=== PATIENT | male | born 1960 | race Caucasian/White ===

== ENCOUNTER 2020-05-13 19:34 | Inpatient (IN) | payer MEDICARE, SELFPAY ==
[2020-05-13 19:48] VITALS: BP 195/94; PULSE 75; RESP 20; TEMP 38; O2SAT 98
--- NOTE | 2020-05-13 20:00 | ED_ITS ---
HPI - Extremity Problem General Chief complaint: Extremity Problem,Nontraumatic Stated complaint: diabetic, toe is bad Time Seen by Provider: 05/13/20 19:45 Source: patient Mode of arrival: Ambulatory Limitations: no limitations History of Present Illness HPI Narrative: 59-year-old male. His lung dependent diabetic. Here for evaluation of infection of his left great toe/foot. Patient states that he believes all of the symptoms started on Tuesday of this week. He denies any pain. States that he went to an outside facility 2 days ago. He was not started on any antibiotics. He came to the emergency department today because the toenail of that great toe came off today and he was convinced to come in for evaluation by his sister who is at bedside. He states that he is taking all of his medications. No fevers. No chest pain. No shortness of breath. Related Data Home Medications Medication Instructions Recorded Confirmed gabapentin 300 mg PO DAILY 05/13/20 05/13/20 insulin glargine [Basaglar KwikPen 35 unit SUBCUT BEDTIME 05/13/20 05/13/20 U-100 Insulin] metformin 500 mg PO BID 05/13/20 05/13/20 Allergies Allergy/AdvReac Type Severity Reaction Status Date / Time Penicillins Allergy Unknown Verified 05/13/20 20:00 Review of Systems Constitutional Constitutional: Denies fatigue and Denies fever(s) Cardiovascular Cardiovascular: Denies chest pain, Denies rapid heart rate and Denies dyspnea Respiratory Respiratory: Denies cough and Denies dyspnea Gastrointestinal Gastrointestinal: Denies abdominal pain, Denies nausea and Denies vomiting Genitourinary Genitourinary: Denies dysuria Genitourinary: Denies dysuria Musculoskeletal Musculoskeletal: Denies arthralgias and Denies myalgias Comments: Redness swelling his left foot/great toe Integumentary/Breasts Comments: Redness and swelling to left foot Neurologic Comments: Decreased sensation left foot but this is not new Endocrine Endocrine: Denies fatigue Hematologic/Lymphatic Hematologic/Lymphatic: Denies easy bleeding and Denies easy bruising Allergic/Immunologic Allergic/Immunologic: Denies urticaria Patient History Medical History Cognitive developmental delay (Chronic) Diabetes type 2, uncontrolled (Acute) Edentulous (Acute) Hard of hearing (Chronic) Tobacco user (Chronic) Surgical History Hx of cholecystectomy (Acute) Family History Sister Diabetes type 1, controlled Brother Diabetes mellitus Father Acute [place] Atrial fibrillation, chronic Status cardiac pacemaker Mother Lung cancer Social History marital status: unmarried,single number of children: 1 household members: children lives independently: Yes caregiver/support person: No housing: house occupational status: employed current occupational exposures/hazards: Yes ([employer]) Smoking Status: Current every day smoker quit status: not considering quitting alcohol intake: former substance use type: marijuana Smoking Status: Current every day smoker Substance Use Type: marijuana Exam Initial Vital Signs Initial Vital Signs: Vital Signs Temperature 100.4 F H 05/13/20 19:48 Pulse Rate 75 05/13/20 19:48 Respiratory Rate 20 05/13/20 19:48 Blood Pressure 195/94 H 05/13/20 19:48 Pulse Oximetry 98 05/13/20 19:48 Const General: cooperative Limitations: mental status not altered HENMT Head: normal to inspection and normocephalic Resp Effort & Inspection: tachypneic Auscultation: clear to auscultation bilaterally Cardio Rate: regular rate Pulses: dorsalis pedis present bilaterally GI Inspection: non-distended Palpation: soft Skin Other: Patient is missing the toenail of his left great toe. Has ulcerations and draining and purulence from the left great toenail bed extending up to the IP joint. Has redness circumferential of the great toe and the 2nd toe up until mid foot with swelling. There is also redness streaking up the medial aspect of his foot in the medial aspect of his leg to distal to the knee. Neuro Other: Does have decreased sensation to light touch of his left foot but seems to be equal bilaterally and patient reports this is not new. Extrem General: capillary refill normal Other: Full range of motion left ankle Scores GCS Luciana coma scale eye opening: Spontaneous [place] coma scale verbal response: Orientated [place] coma scale motor response: Obey commands [place] coma scale total score: 15 Course Orders Ordered: ED Orders 05/13/20 19:50 Blood Culture Stat 05/13/20 19:55 C-Reactive Protein Quant Stat Complete Blood Count AUTO DIFF Stat Comprehensive Metabolic Panel Stat Erythrocyte Sedimentation Rate Stat Hemoglobin A1C% w Est Avg Glu Stat Lactate (Lactic Acid) Stat Lipase Stat Procalcitonin Stat Wound Culture and Gram Stain Stat 05/13/20 20:00 XR foot LT min 3V Stat 05/13/20 20:54 Consult to Orthopedic Surgery Stat Acetaminophen (Tylenol) 650 mg PO Q6HR PRN PRN Reason: Fever/Mild Pain (1-3) Last Admin: 05/13/20 22:30 Dose: 650 mg Documented by: SILVIA Dextrose ([email or web address]) 25 gm IV PRN PRN PRN Reason: Hypoglycemia Docusate Sodium (Colace) 100 mg PO BID [facility] Last Admin: 05/13/20 22:48 Dose: 100 mg Documented by: SILVIA Sodium Chloride (Normal Saline 0.9%) 1,000 mls @ 125 mls/hr IV CONT [facility] Last Infusion: 05/13/20 21:41 Dose: 125 mls/hr Documented by: Admin: 05/13/20 20:11 Dose: 125 mls/hr Documented by: BARBARA Ceftriaxone Sodium/Dextrose (Rocephin) 1 gm in 50 mls @ 100 mls/hr IV Q24H MICHAEL Sodium Chloride (Normal Saline 0.9%) 1,000 mls @ 100 mls/hr IV CONT [facility] Last Admin: 05/13/20 22:49 Dose: 100 mls/hr Documented by: SILVIA Vancomycin HCl (Vancomycin) 1,000 mg in 200 mls @ 200 mls/hr IV Q8H MICHAEL Ibuprofen (Advil) 600 mg PO Q6HR PRN PRN Reason: Fever/Mild Pain (1-3) Last Admin: 05/13/20 22:52 Dose: 600 mg Documented by: SILVIA Insulin Aspart (Novolog Flexpen) 0 unit SUBCUT ACHS [facility]; Protocol Insulin Glargine (Lantus Solostar (Pen)) 35 unit SUBCUT BEDTIME [facility] Last Admin: 05/13/20 22:49 Dose: 35 unit Documented by: SIVLIA Cosigned by: RAUL Ketorolac Tromethamine (Toradol) 15 mg IV Q6HR PRN PRN Reason: Pain, Moderate (4-6) Stop: 05/18/20 21:14 Last Admin: 05/13/20 22:52 Dose: 15 mg Documented by: SILVIA Naloxone HCl (Narcan) 0.2 mg IV Q2MIN PRN PRN Reason: Opiate Reversal Ondansetron HCl (Zofran) 4 mg IV Q6HR PRN PRN Reason: Nausea And Vomiting Vancomycin HCl (Vancomycin Per Pharmacy) 1 request MISC NOW ONE Stop: 05/13/20 21:22 Discontinued Medications Vancomycin HCl (Vancomycin) 1,000 mg in 200 mls @ 200 mls/hr IV NOW ONE Stop: 05/13/20 20:59 Last Infusion: 05/13/20 21:40 Dose: 200 mls/hr Documented by: Admin: 05/13/20 20:48 Dose: 200 mls/hr Documented by: BARBARA Ceftriaxone Sodium/Dextrose (Rocephin) 1 gm in 50 mls @ 100 mls/hr IV NOW ONE Stop: 05/13/20 20:33 Last Infusion: 05/13/20 20:48 Dose: 0 mls/hr Documented by: Admin: 05/13/20 20:11 Dose: 100 mls/hr Documented by: BARBARA Insulin Human Regular (Humulin R) 10 unit SUBCUT NOW ONE Stop: 05/13/20 20:56 Last Admin: 05/13/20 21:05 Dose: 10 unit Documented by: BARBARA Cosigned by: RAULITO Metoprolol Tartrate (Lopressor) 25 mg PO NOW ONE Stop: 05/13/20 23:31 Last Admin: 05/14/20 00:19 Dose: Not Given Documented by: RAUL Vital Signs Vital signs: Vital Signs - 8 hr 05/13/20 19:48 Temperature 100.4 F H Pulse Rate 75 Respiratory Rate 20 Blood Pressure 195/94 H Pulse Oximetry 98 MDM - Extremity (Nontraumatic) Lab Data Result diagrams: 05/13/20 19:55 05/13/20 19:55 Labs: Lab Results 05/13/20 05/13/20 05/13/20 Range/Units 19:55 19:55 19:55 WBC 10.7 (4.5-11.0) X10^3/uL RBC 4.28 L (4.5-5.9) X10^6/uL Hgb 13.4 L (13.5-17.5) g/dL Hct 40.2 L (41-53) % MCV 94.0 (80-100) fL MCH 31.4 (26-34) PG MCHC 33.4 (30-36) % RDW 12.6 (11.6-14.8) % Plt Count 315 (150-400) X10^3/uL Neut % (Auto) 67.7 (50-75) % Lymph % (Auto) 16.3 L (25-40) % [place] % (Auto) 13.5 (3-14) % Eos % (Auto) 1.5 L (2-4) % Baso % (Auto) 1.0 (0-2) % Neut # (Auto) 7300 H (0168-5173) /uL Lymph # (Auto) 1800 (8055-2906) /uL [place] # (Auto) 1500 H (0-900) /uL Eos # (Auto) 200 (0-450) /uL Baso # (Auto) 100 (0-100) /uL ESR (0-15) MM/HR Sodium 132 L (137-145) mmol/L Potassium 4.3 (3.4-5.1) mmol/L Chloride 95 L (98-107) mmol/L Carbon Dioxide 26 (22-32) mmol/L BUN 15 (9-20) mg/dL Creatinine 0.62 L (0.66-1.25) mg/dL Estimated GFR > 60.0 (>60) mL/min BUN/Creatinine Ratio 24.2 H (6-22) Glucose 416 H (70-100) mg/dL Hemoglobin A1c (4.0-6.0) % Lactate (0.7-2.1) mmol/L Calcium 8.9 (8.4-10.2) mg/dL Total Bilirubin 0.7 (0.2-1.3) mg/dL AST 14 L (17-59) IU/L ALT 11 (<50) IU/L Alkaline Phosphatase 90 (38-126) U/L C-Reactive Protein (<1.0) mg/dL Total Protein 7.8 (6.3-8.2) g/dL Albumin 3.8 (3.5-5.0) g/dL Globulin 4.0 (1.7-4.1) g/dL Albumin/Globulin Ratio 1.0 (1.0-2.8) Lipase (23-300) U/L Procalcitonin < 0.05 (<0.5) ng/mL COVID-19 PCR (Negative) 05/13/20 05/13/20 05/13/20 Range/Units 19:55 19:55 19:55 WBC (4.5-11.0) X10^3/uL RBC (4.5-5.9) X10^6/uL Hgb (13.5-17.5) g/dL Hct (41-53) % MCV (80-100) fL MCH (26-34) PG MCHC (30-36) % RDW (11.6-14.8) % Plt Count (150-400) X10^3/uL Neut % (Auto) (50-75) % Lymph % (Auto) (25-40) % [place] % (Auto) (3-14) % Eos % (Auto) (2-4) % Baso % (Auto) (0-2) % Neut # (Auto) (8417-8055) /uL Lymph # (Auto) (9365-5099) /uL [place] # (Auto) (0-900) /uL Eos # (Auto) (0-450) /uL Baso # (Auto) (0-100) /uL ESR 70 H (0-15) MM/HR Sodium (137-145) mmol/L Potassium (3.4-5.1) mmol/L Chloride (98-107) mmol/L Carbon Dioxide (22-32) mmol/L BUN (9-20) mg/dL Creatinine (0.66-1.25) mg/dL Estimated GFR (>60) mL/min BUN/Creatinine Ratio (6-22) Glucose (70-100) mg/dL Hemoglobin A1c (4.0-6.0) % Lactate 1.3 (0.7-2.1) mmol/L Calcium (8.4-10.2) mg/dL Total Bilirubin (0.2-1.3) mg/dL AST (17-59) IU/L ALT (<50) IU/L Alkaline Phosphatase (38-126) U/L C-Reactive Protein (<1.0) mg/dL Total Protein (6.3-8.2) g/dL Albumin (3.5-5.0) g/dL Globulin (1.7-4.1) g/dL Albumin/Globulin Ratio (1.0-2.8) Lipase 145 (23-300) U/L Procalcitonin (<0.5) ng/mL COVID-19 PCR (Negative) 05/13/20 05/13/20 05/13/20 Range/Units 19:55 19:55 20:55 WBC (4.5-11.0) X10^3/uL RBC (4.5-5.9) X10^6/uL Hgb (13.5-17.5) g/dL Hct (41-53) % MCV (80-100) fL MCH (26-34) PG MCHC (30-36) % RDW (11.6-14.8) % Plt Count (150-400) X10^3/uL Neut % (Auto) (50-75) % Lymph % (Auto) (25-40) % [place] % (Auto) (3-14) % Eos % (Auto) (2-4) % Baso % (Auto) (0-2) % Neut # (Auto) (6764-7177) /uL Lymph # (Auto) (1896-5253) /uL [place] # (Auto) (0-900) /uL Eos # (Auto) (0-450) /uL Baso # (Auto) (0-100) /uL ESR (0-15) MM/HR Sodium (137-145) mmol/L Potassium (3.4-5.1) mmol/L Chloride (98-107) mmol/L Carbon Dioxide (22-32) mmol/L BUN (9-20) mg/dL Creatinine (0.66-1.25) mg/dL Estimated GFR (>60) mL/min BUN/Creatinine Ratio (6-22) Glucose (70-100) mg/dL Hemoglobin A1c 13.8 H (4.0-6.0) % Lactate (0.7-2.1) mmol/L Calcium (8.4-10.2) mg/dL Total Bilirubin (0.2-1.3) mg/dL AST (17-59) IU/L ALT (<50) IU/L Alkaline Phosphatase (38-126) U/L C-Reactive Protein 6.3 H (<1.0) mg/dL Total Protein (6.3-8.2) g/dL Albumin (3.5-5.0) g/dL Globulin (1.7-4.1) g/dL Albumin/Globulin Ratio (1.0-2.8) Lipase (23-300) U/L Procalcitonin (<0.5) ng/mL COVID-19 PCR Negative (Negative) Point of Care Testing Glucose POC 314 Imaging Data Extremity x-ray #1: Radiologist's Impression: [address] [address] XRay Report Signed Patient: Craig Guerin [facility]#: [id number] : 2Acct:[id number] Age/Sex: 59 / MDate of Service: 05/13/20 Loc: ED Accession Number: [id number] Procedure: XR foot LT min 3V Ordering Provider: Tony Smith D.O. PROCEDURE: XR FOOT LT MIN 3V INDICATIONS: infection eval for fx or osteo of great toe TECHNIQUE: 3 views of the foot were acquired. COMPARISON: None. FINDINGS: Bones: No fractures or dislocations, and there is no definite osteomyelitis. However, as is frequently the case the medullary space of the great toe distally is mildly heterogeneous.. No suspicious bony lesions. Soft tissues: No tibiotalar joint effusion. Achilles tendon appears normal. IMPRESSION: No definite osteomyelitis is found but there is mild heterogeneity of the marrow space of the distal great toe. This is a nonspecific finding but continued clinical and plain film follow-up is recommended and if concerns are significant MR scanning with contrast may become necessary. Dictated by: Derek Caba M.D. on 05/13/2020 at 20:29 Approved by: Derek Caba M.D. on 05/13/2020 at 20:31 [facility] Narrative Medical decision making narrative: Febrile upon arrival. Patient is somewhat ill-appearing. The findings of his left foot consistent with cellulitis and also concerning for osteomyelitis. Patient is hyperglycemic. Was given insulin. Discussed the case with Dr. Hackett with Orthopedics who will come see the patient upon admission. Discussed the admission with INFORMATION SYSTEMS SECURITY DEVELOPER [facility] provider who will admit. Patient was given antibiotics in the ER for concern of sepsis less osteomyelitis. Discussed the admission with the patient. He has expressed understanding and agreement. Discharge Plan Departure Patient Disposition: Admitted As Inpatient Clinical Impression: Cellulitis, Diabetes Discharge Date/Time: 05/13/20 21:42 Admit Date/Time: 05/13/20 21:08 Admit Provider: Zoila Maldonado
[2020-05-13 20:11] LABS: Add Manual Diff / Slide Review NO; Basophils Absolute Auto 100 /uL (0-100); Eosinophils Absolute Auto 200 /uL (0-450); Eosinophils Percent Auto 1.5 % (2-4); Hematocrit 40.2 % (41-53); Hemoglobin 13.4 g/dL (13.5-17.5); Lymphocytes Absolute Auto 1800 /uL (1100-4500); Lymphocytes Percent Auto 16.3 % (25-40); Mean Corpuscular HGB Conc 33.4 % (30-36); Mean Corpuscular Hemoglobin 31.4 PG (26-34); Monocytes Absolute Auto 1500 /uL (0-900); Monocytes Percent Auto 13.5 % (3-14); Neutrophils Absolute Auto 7300 /uL (1500-7000); Neutrophils Percent Auto 67.7 % (50-75); Platelet Count 315 X10^3/uL (150-400); Red Blood Cell Count 4.28 X10^6/uL (4.5-5.9); Red Cell Distribution Width 12.6 % (11.6-14.8); White Blood Cell Count 10.7 X10^3/uL (4.5-11.0)
[2020-05-13] MEDS: SODIUM CHLORIDE 0.9% 1,000 ML 125 ML IV (20:11)
[2020-05-13] MEDS: CEFTRIAXONE 1 GM/50 ML FROZ.PIGGY IV (20:11)
[2020-05-13 20:19] LABS: Alanine Aminotransferase 11 IU/L (<50); Albumin 3.8 g/dL (3.5-5.0); Alkaline Phosphatase 90 U/L (38-126); Aspartate Aminotransferase 14 IU/L (17-59); BUN Creatinine Ratio 24.2 (6-22); Bilirubin Total 0.7 mg/dL (0.2-1.3); Blood Urea Nitrogen 15 mg/dL (9-20); Calcium 8.9 mg/dL (8.4-10.2); Carbon Dioxide 26 mmol/L (22-32); Chloride 95 mmol/L (98-107); Estimated Glomerular Filt Rate > 60.0 mL/min (>60); Glucose 416 mg/dL (70-100); HEMOLYSIS < 15 (0-50); Lactate (Lactic Acid) 1.3 mmol/L (0.7-2.1); Lipase 145 U/L (23-300); Potassium 4.3 mmol/L (3.4-5.1); Sodium 132 mmol/L (137-145); Total Protein 7.8 g/dL (6.3-8.2)
[2020-05-13 20:36] LABS: Procalcitonin < 0.05 ng/mL (<0.5)
[2020-05-13] MEDS: VANCOMYCIN 1,000 MG/200 ML PIGGYBACK 200 MG IV (20:48)
[2020-05-13 21:00] LABS: Hemoglobin A1C% w Est Avg Glu 13.8 % (4.0-6.0)
[2020-05-13 21:01] LABS: C-Reactive Protein Quant 6.3 mg/dL (<1.0)
[2020-05-13] MEDS: INSULIN REGULAR 100 UNIT/ML 3 ML VIAL 10 UNIT SUBCUT (21:05)
[2020-05-13 21:12] LABS: Erythrocyte Sedimentation Rate 70 MM/HR (0-15)
[2020-05-13 21:15] VITALS: BP 182/82; PULSE 81; RESP 16; O2SAT 98
[2020-05-13 21:35] VITALS: BP 170/75; PULSE 80; RESP 18; TEMP 39.1; O2SAT 98
[2020-05-13 21:52] LABS: COVID19 -Nasal RAPID Negative (Negative)
[2020-05-13] MEDS: ACETAMINOPHEN 325 MG TABLET 650 MG PO (22:30)
[2020-05-13] MEDS: DOCUSATE 100 MG CAPSULE PO (22:48)
[2020-05-13] MEDS: INSULIN GLARGINE 100 UNIT/ML 3ML PEN 35 UNIT SUBCUT (22:49)
[2020-05-13] MEDS: SODIUM CHLORIDE 0.9% 1,000 ML 100 ML IV (22:49)
[2020-05-13 22:52] VITALS: TEMP 38.8
[2020-05-13] MEDS: KETOROLAC 15 MG/ML VIAL IV (22:52)
[2020-05-13] MEDS: IBUPROFEN 600 MG TABLET PO (22:52)
--- NOTE | 2020-05-13 23:04 | PM.HP.1 ---
History of Present Illness History of Present Illness Date Patient Seen: 05/13/20 Time Patient Seen: 22:30 Chief complaint: diabetic, toe is bad Narrative: Craig Guerin is a 59 y.o. male type 2 poorly controlled Diabetes type 2 with a hemoglobin A1c of 13.8 presented after a several-day history of pain in his left great toe. Patient states that he went to his doctor and was given medicine for nerve pain. Much of the history is provided by the sister who states that the patient is slow meaning developmentally delayed. She recently relocated to the area to take care of their father and now is concerned that she may need also take care of him. At the time he stated that his toe was peeling and that it hurt and today he called Roseanne his sister and asked her to come by and take a look at his toe as his toenail had fallen off today. She looked at his toe and brought him to the emergency department for further evaluation. He denies fevers sweats or chills, he does state that he has most of his teeth out, denies shortness of breath, chest pain, nausea vomiting, joint pain, dysuria, diarrhea or constipation. He does state that he does not feel the toes of his feet. In the emergency department they did have an x-ray done, reported negative for suspicion for osteomyelitis. Is febrile at 1:02 a.m., blood pressure 170/75, heart rate 80, respiratory 18, oxygen saturation 98% on room air, he weighs 68 kg. White count 10.7, RBC 4.28, hemoglobin 13.4, hematocrit 40.2, platelet count 315, neutrophils are elevated at 7300. Sodium 132, potassium 4.3, chloride 95, bicarb 26, BUN 15, creatinine 0.62, GFR is greater than 60, glucose is 416, A1c is 13.8, lactated 1.3, calcium 8.9, bilirubin 0.7, AST 14, ALT 11, alk-phos 90, C-reactive protein is elevated at 6.3, procalcitonin is negative and COVID-19 is negative. Patient History Medical History Cognitive developmental delay (Chronic) Diabetes type 2, uncontrolled (Acute) Edentulous (Acute) Hard of hearing (Chronic) Tobacco user (Chronic) Surgical History Hx of cholecystectomy (Acute) Family & Social History Family History Sister Diabetes type 1, controlled Brother Diabetes mellitus Father Acute [place] Atrial fibrillation, chronic Status cardiac pacemaker Mother Lung cancer Safety & Behavioral: Feels Safe in Current Yes Environment Tobacco & Substance use: Smoking Status Current every day smoker Substance Use Type marijuana Meds Home Medications and Allergies Home Medications Medication Instructions Recorded Confirmed Type gabapentin 300 mg PO DAILY 05/13/20 05/13/20 History insulin glargine [Basaglar KwikPen 35 unit SUBCUT BEDTIME 05/13/20 05/13/20 History U-100 Insulin] metformin 500 mg PO BID 05/13/20 05/13/20 History Allergies Allergy/AdvReac Type Severity Reaction Status Date / Time Penicillins Allergy Unknown Verified 05/13/20 20:00 Review of Systems Review of Systems ROS: Yes All systems reviewed with the patient and are negative except as otherwise documented Exam Vital Signs (past 8 hours): - 05/13/20 19:48 05/13/20 21:15 05/13/20 21:35 Temperature 100.4 F H 102.4 F H Pulse Rate 75 81 80 Respiratory Rate 20 16 18 Blood Pressure 195/94 H 182/82 H 170/75 H Pulse Oximetry 98 98 98 05/13/20 22:52 Temperature 102 F H Pulse Rate Respiratory Rate Blood Pressure Pulse Oximetry Oxygen Delivery Method Room Air Oxygen Flow Rate 0 Narrative Exam Narrative: Gen: Alert, oriented, thin 59 y.o. male, appears chronically ill HEENT: normocephalic, atraumatic, conjunctiva clear, sclera non-icteric, edentulous, oral mucosa pink and moist, strong odor of tobacco on him Neck: supple, full ROM, no JVD, trachea is midline Resp: Lungs CTA, non-labored breathing CV: RRR, no murmur or rubs Abd: soft, non-tender, normoactive BTs Skin: Open wound on left great toe, non-draining, erythema extending from foot to just below knee, no lesions or rashes Neuro: Very hard of hearing, alert and oriented X 4 w/no focal deficits. Speech clear and coherent. Extremities: Left great toe is peeling, erythematous and appears to have some necrotic tissue around the cutaneous borders of his nail bed, nail is missing. Moves all 4 extremities, is ambulatory, negative Tika?s sign Psyche: normal mood and affect. Objective Labs Result Diagrams: 05/13/20 19:55 05/13/20 19:55 Labs: Laboratory Results - last 24 hr 05/13/20 05/13/20 05/13/20 19:55 19:55 19:55 WBC 10.7 RBC 4.28 L Hgb 13.4 L Hct 40.2 L MCV 94.0 MCH 31.4 MCHC 33.4 RDW 12.6 Plt Count 315 Neut % (Auto) 67.7 Lymph % (Auto) 16.3 L [place] % (Auto) 13.5 Eos % (Auto) 1.5 L Baso % (Auto) 1.0 Neut # (Auto) 7300 H Lymph # (Auto) 1800 [place] # (Auto) 1500 H Eos # (Auto) 200 Baso # (Auto) 100 ESR Sodium 132 L Potassium 4.3 Chloride 95 L Carbon Dioxide 26 BUN 15 Creatinine 0.62 L Estimated GFR > 60.0 BUN/Creatinine Ratio 24.2 H Glucose 416 H Hemoglobin A1c Lactate Calcium 8.9 Total Bilirubin 0.7 AST 14 L ALT 11 Alkaline Phosphatase 90 C-Reactive Protein Total Protein 7.8 Albumin 3.8 Globulin 4.0 Albumin/Globulin Ratio 1.0 Lipase Procalcitonin < 0.05 COVID-19 PCR 05/13/20 05/13/20 05/13/20 19:55 19:55 19:55 WBC RBC Hgb Hct MCV MCH MCHC RDW Plt Count Neut % (Auto) Lymph % (Auto) [place] % (Auto) Eos % (Auto) Baso % (Auto) Neut # (Auto) Lymph # (Auto) [place] # (Auto) Eos # (Auto) Baso # (Auto) ESR 70 H Sodium Potassium Chloride Carbon Dioxide BUN Creatinine Estimated GFR BUN/Creatinine Ratio Glucose Hemoglobin A1c Lactate 1.3 Calcium Total Bilirubin AST ALT Alkaline Phosphatase C-Reactive Protein Total Protein Albumin Globulin Albumin/Globulin Ratio Lipase 145 Procalcitonin COVID-19 PCR 05/13/20 05/13/20 05/13/20 19:55 19:55 20:55 WBC RBC Hgb Hct MCV MCH MCHC RDW Plt Count Neut % (Auto) Lymph % (Auto) [place] % (Auto) Eos % (Auto) Baso % (Auto) Neut # (Auto) Lymph # (Auto) [place] # (Auto) Eos # (Auto) Baso # (Auto) ESR Sodium Potassium Chloride Carbon Dioxide BUN Creatinine Estimated GFR BUN/Creatinine Ratio Glucose Hemoglobin A1c 13.8 H Lactate Calcium Total Bilirubin AST ALT Alkaline Phosphatase C-Reactive Protein 6.3 H Total Protein Albumin Globulin Albumin/Globulin Ratio Lipase Procalcitonin COVID-19 PCR Negative Assessment & Plan Assessment & Plan narrative: Craig Guerin will be admitted for further management and treatment of a left toe cellulitis and suspected necrosis. Left toe cellulitis w/suspected necrosis, acute, present on admission -He was started on IV ceftriaxone and vancomycin in the ED and these will be continued -Dr. Ghosh has been contacted and may need to amputate, she plans surgery for tomorrow if indicated -Follow progression of blackened areas and contact her earlier as necessary Diabetes type 2, poorly controlled with an A1c of 13.7, present on admission -Continue home dose of Lantus 35 units at bedtime -High dose correctional insulin q 6 hours -Diabetic education by dietitian ordered Tobacco dependence, severe -Patient is counseled on smoking cessation, and educated on how it adversely affects wound healing Elevated blood pressure without a diagnosis of hypertension -Q shift blood pressures -Administered a one-time dose of metoprolol succinate 25 mg Consults: Dr. Ghosh, Orthopedic surgery, consult and involvement is appreciated. Patient is admitted under inpatient status with expected length of stay greater than 2 midnights due to severity of presenting symptoms, risk of adverse event, and complexity of treatment plan. Patient is admitted under inpatient status with expected length of stay greater than 2 midnights due to severity of presenting symptoms, risk of adverse event, and complexity of treatment plan. FEN: IV NS at 100ml/hour, carb control diet, then NPO after midnight, BMP and magnesium in the am. VTE prophylaxis: Cabrini risk score: 4 Bilateral right sided SCD Dispo: unknown at this time Code Status: Full code as discussed with patient COVID-19 COVID-19 status: Negative Result date/Date tested (Pos, Neg/Pending): 05/13/20
[2020-05-13 23:40] VITALS: BP 113/61; PULSE 70; RESP 16; TEMP 37.6; O2SAT 96
[2020-05-13 23:51] VITALS: BMI 19.8
[2020-05-14] VITALS (16 sets, daily range): BP systolic 120–145; BP diastolic 47–74; PULSE 62–89; RESP 10–20; TEMP 36.6–38.2; O2SAT 96–99; BMI 19.8
--- NOTE | 2020-05-14 | PATH_ITS ---
[facility] Accession Number: [id number] . 01 Material submitted: . toe - LEFT GREAT TOE . 01 Clinical history: . DIABETIC, TOE IS BAD . 01 Diagnosis: Left Great Toe, Amputation: Actively inflamed chronic ulcer of skin associated with pseudoepitheliomatous hyperplasia and reactive squamous atypia. Changes consistent with acute osteomyelitis. Skin and soft tissue margins of excision viable. [facility] 05/20/2020 1814 Local . 01 Electronically signed: . Fatou Carlisle MD, Pathologist NPI- [id number] . 01 Gross description: . The specimen is received in formalin, labeled great toe and consists of a 3.2 x 3.0 x 2.8 cm disrupted portion of disarticulated toe. The skin is sanchez and the unguis is not present. There is a 1.7 x 2.0 cm sanchez, focally hemorrhagic and nodular portion of skin where the unguis is not present, located 1.0 cm from the nearest skin margin. Sectioning through this area reveals a maximal thickness of 0.5 cm with no obvious extension into the underlying bone. Child Custody Evaluator sections are submitted. . A1-A2: One bisected full cross-section, following decalcification. A3-A4: Child Custody Evaluator skin lesion. ([id number]) /[facility] 05/16/2020 1717 Local . 01 Pathologist provided ICD-10: E13.621 . 01 CPT . 783974, 507254, 873046 Performed at: [address] [id number] MD Clemente Ruelas MD Phone: [phone]
[2020-05-14] MEDS: INSULIN ASPART 100 UNIT/ML INSULN PEN SUBCUT ×5 (02:14→23:40)
[2020-05-14] MEDS: VANCOMYCIN 1,000 MG/200 ML PIGGYBACK 200 MG IV ×4 (04:07→23:35)
[2020-05-14 05:56] LABS: Add Manual Diff / Slide Review NO; Basophils Absolute Auto 100 /uL (0-100); Eosinophils Absolute Auto 100 /uL (0-450); Eosinophils Percent Auto 1.2 % (2-4); Hematocrit 38.2 % (41-53); Hemoglobin 12.6 g/dL (13.5-17.5); Lymphocytes Absolute Auto 1600 /uL (1100-4500); Lymphocytes Percent Auto 17.9 % (25-40); Mean Corpuscular HGB Conc 33.1 % (30-36); Mean Corpuscular Hemoglobin 31.1 PG (26-34); Monocytes Absolute Auto 1200 /uL (0-900); Monocytes Percent Auto 13.2 % (3-14); Neutrophils Absolute Auto 6100 /uL (1500-7000); Neutrophils Percent Auto 66.7 % (50-75); Platelet Count 260 X10^3/uL (150-400); Red Blood Cell Count 4.07 X10^6/uL (4.5-5.9); Red Cell Distribution Width 12.4 % (11.6-14.8); White Blood Cell Count 9.2 X10^3/uL (4.5-11.0)
[2020-05-14 06:06] LABS: Alanine Aminotransferase 8 IU/L (<50); Albumin 3.3 g/dL (3.5-5.0); Alkaline Phosphatase 67 U/L (38-126); Aspartate Aminotransferase 11 IU/L (17-59); BUN Creatinine Ratio 29.8 (6-22); Bilirubin Total 0.4 mg/dL (0.2-1.3); Blood Urea Nitrogen 17 mg/dL (9-20); Calcium 8.5 mg/dL (8.4-10.2); Carbon Dioxide 30 mmol/L (22-32); Chloride 100 mmol/L (98-107); Estimated Glomerular Filt Rate > 60.0 mL/min (>60); Globulin 3.4 g/dL (1.7-4.1); Glucose 293 mg/dL (70-100); HEMOLYSIS < 15 (0-50); Potassium 3.8 mmol/L (3.4-5.1); Sodium 136 mmol/L (137-145); Total Protein 6.7 g/dL (6.3-8.2)
--- NOTE | 2020-05-14 06:53 | PC.NURSE ---
Patient had bleeding L toe when he was up to the bathroom. Wound was cleaned w/ sterile saline and sterile gauze. Patient tolerated well. Wound was left open to air and chucks was placed beneath, pillow was placed beneath for elevation. Patient does not complain of pain.
--- NOTE | 2020-05-14 08:17 | P.CONS_ITS ---
History of Present Illness Consult details Date Patient Seen: 05/14/20 Time Patient Seen: 08:17 Chief complaint: diabetic, toe is bad Reason for consult: Diabetic toe, left great toe necrosis Requesting provider: Tony Smith Narrative: Patient is a 59-year-old uncontrolled type 2 diabetic male ports about 1 week of left great toe swelling. States he was seen by PCP earlier in the week given medication for neuropathy but generally notice much until his toenail fell off yesterday. He presented to the ER was noted to have a markedly swollen great toe from the IP joint distal with the cellulitis tracking up his leg to his knee. There was an necrosis noted at the a distal phalanx dorsal soft tissues an absence of the nail and presence of malodor. CRP was markedly elevated at 6.3 hemoglobin A1c is 13.8 over the 19th negative on 05/13/2020. History positive for tobacco smoke daily. Patient lives independently and is his own decisionmaker. Endorses neuropathy bilateral lower extremities to the mid pretibial area. Denies any known injury to the left great toe. Meds Home Medications and Allergies Home Medications Medication Instructions Recorded Confirmed Type gabapentin 300 mg PO DAILY 05/13/20 05/13/20 History insulin glargine [Basaglar KwikPen 35 unit SUBCUT BEDTIME 05/13/20 05/13/20 History U-100 Insulin] metformin 500 mg PO BID 05/13/20 05/13/20 History Allergies Allergy/AdvReac Type Severity Reaction Status Date / Time Penicillins Allergy Unknown Verified 05/13/20 20:00 Review of Systems Review of Systems Narrative: Endorses neuropathy endorses tobacco use. Denies pain denies history of injury. Endorses history of diabetes is indicated ROS: Yes All systems reviewed with the patient and are negative except as otherwise documented Exam Vital Signs (past 8 hours): - 05/14/20 00:45 05/14/20 06:00 05/14/20 07:00 Temperature 98.5 F Pulse Rate 62 Respiratory Rate 18 Blood Pressure 122/60 Pulse Oximetry 96 98 98 Oxygen Delivery Method Room Air Oxygen Flow Rate 0 Narrative Exam Narrative: General exam is alert and oriented male, thin HEENT exam normocephalic atraumatic Respiratory exam unlabored on room air, lungs clear to auscultation bilaterally HEENT exam regular rate and rhythm Musculoskeletal exam: Moving bilateral upper extremities full range of motion or tenderness to palpation. Right lower extremity no wounds. There stocking- glove neuropathy to the midshaft of the tibia no wounds no erythema no redness. Left lower extremity examination demonstrates swelling and absence of the great toenail on the left toe. Capillary refill is brisk at less than 2 seconds. Dorsal pedis pulse is palpated. There is dorsal tissue necrosis at the medial aspect of the nail bed that is deep and malodorous. No obvious purulence expressed but necrotic tissue was present. There is also erythema to the level of the IP joint. And skin peeling. This is not progress past the IP joint and demarcation lines from marker from the ER last night. Some mild erythema along the midfoot this appears to have receded from up to the level of the knee per report in the ER. Demonstrates dorsiflexion plantar flexion. Is able to flex and extend the toe. Compartments were soft. Skin wrinkles are present at the level of the proximal phalanx and MTP Objective Labs Result Diagrams: 05/14/20 05:20 05/14/20 05:20 Labs: Laboratory Results - last 24 hr 05/13/20 05/13/20 05/13/20 19:55 19:55 19:55 WBC 10.7 RBC 4.28 L Hgb 13.4 L Hct 40.2 L MCV 94.0 MCH 31.4 MCHC 33.4 RDW 12.6 Plt Count 315 Neut % (Auto) 67.7 Lymph % (Auto) 16.3 L [place] % (Auto) 13.5 Eos % (Auto) 1.5 L Baso % (Auto) 1.0 Neut # (Auto) 7300 H Lymph # (Auto) 1800 [place] # (Auto) 1500 H Eos # (Auto) 200 Baso # (Auto) 100 ESR Sodium 132 L Potassium 4.3 Chloride 95 L Carbon Dioxide 26 BUN 15 Creatinine 0.62 L Estimated GFR > 60.0 BUN/Creatinine Ratio 24.2 H Glucose 416 H Hemoglobin A1c Lactate Calcium 8.9 Magnesium Total Bilirubin 0.7 AST 14 L ALT 11 Alkaline Phosphatase 90 C-Reactive Protein Total Protein 7.8 Albumin 3.8 Globulin 4.0 Albumin/Globulin Ratio 1.0 Lipase Procalcitonin < 0.05 COVID-19 PCR 05/13/20 05/13/20 05/13/20 19:55 19:55 19:55 WBC RBC Hgb Hct MCV MCH MCHC RDW Plt Count Neut % (Auto) Lymph % (Auto) [place] % (Auto) Eos % (Auto) Baso % (Auto) Neut # (Auto) Lymph # (Auto) [place] # (Auto) Eos # (Auto) Baso # (Auto) ESR 70 H Sodium Potassium Chloride Carbon Dioxide BUN Creatinine Estimated GFR BUN/Creatinine Ratio Glucose Hemoglobin A1c Lactate 1.3 Calcium Magnesium Total Bilirubin AST ALT Alkaline Phosphatase C-Reactive Protein Total Protein Albumin Globulin Albumin/Globulin Ratio Lipase 145 Procalcitonin COVID-19 PCR 05/13/20 05/13/20 05/13/20 19:55 19:55 20:55 WBC RBC Hgb Hct MCV MCH MCHC RDW Plt Count Neut % (Auto) Lymph % (Auto) [place] % (Auto) Eos % (Auto) Baso % (Auto) Neut # (Auto) Lymph # (Auto) [place] # (Auto) Eos # (Auto) Baso # (Auto) ESR Sodium Potassium Chloride Carbon Dioxide BUN Creatinine Estimated GFR BUN/Creatinine Ratio Glucose Hemoglobin A1c 13.8 H Lactate Calcium Magnesium Total Bilirubin AST ALT Alkaline Phosphatase C-Reactive Protein 6.3 H Total Protein Albumin Globulin Albumin/Globulin Ratio Lipase Procalcitonin COVID-19 PCR Negative 05/14/20 05/14/20 05:20 05:20 WBC 9.2 RBC 4.07 L Hgb 12.6 L Hct 38.2 L MCV 94.0 MCH 31.1 MCHC 33.1 RDW 12.4 Plt Count 260 Neut % (Auto) 66.7 Lymph % (Auto) 17.9 L [place] % (Auto) 13.2 Eos % (Auto) 1.2 L Baso % (Auto) 1.0 Neut # (Auto) 6100 Lymph # (Auto) 1600 [place] # (Auto) 1200 H Eos # (Auto) 100 Baso # (Auto) 100 ESR Sodium 136 L Potassium 3.8 Chloride 100 Carbon Dioxide 30 BUN 17 Creatinine 0.57 L Estimated GFR > 60.0 BUN/Creatinine Ratio 29.8 H Glucose 293 H D Hemoglobin A1c Lactate Calcium 8.5 Magnesium 2.0 Total Bilirubin 0.4 AST 11 L ALT 8 Alkaline Phosphatase 67 C-Reactive Protein Total Protein 6.7 Albumin 3.3 L Globulin 3.4 Albumin/Globulin Ratio 1.0 Lipase Procalcitonin COVID-19 PCR Assessment & Plan Assessment and plan (1) Diabetic infection of left foot: Problem details: Patient have a diabetic left great toe infection with wet gangrene involving the distal phalanx and nail bed. Has significant swelling and erythema to the level of the IP joint. The ascending cellulitis does appear to have improved on his leg from previous reports after IV antibiotics. Foot x-ray in the ER was interpreted as no definite osteomyelitis but reactive bone changes that could be consistent with this by reading Radiology. Based on the location of the infection and the depth of necrosis on clinical examination I think it is highly likely have distal phalanx bone involvement. In addition the tissue envelope over the dorsal distal phalanx is highly necrotic with additional swelling blister plantarly on the pulp. The patient has a highly and controlled diabetes type 2 with a hemoglobin A1c of 13.8%. Discussed in depth the importance of glycemic control for wound healing and prevention of catastrophic infection. With the soft tissue and damage at this point I feel the patient has a nonsalvageable a distal phalanx. I have recommended partial great toe amputation through the proximal phalanx just proximal to the IP joint to allow for adequate tissue coverage while maintaining as much length as possible 1st ray. I discussed that diabetic control as well as cessation of smoking are extremely important in wound healing and that certainly is neuropathy is another factor making healing more difficult and increases the chance for recurrence is of similar problems. Patient acknowledges this. I have recommended partial great toe amputation today. With the goal of doing this proximal enough for p rimary closure. Postoperatively he would be weight-bearing in a stiff-soled shoe this would be flatfoot in a stiff-soled shoe or heel weight-bearing. Would need to keep the dressing clean dry and intact until the sutures come out which will be approximately 3 weeks. He will be maintained on IV antibiotics while on in-house and of bridge to some p.o. coverage at discharged based on cultures. The risks and benefits of the procedure have been discussed with the patient even opportunity to ask questions. The risks of surgery include but are not limited to infection, need for additional surgery or more proximal amputation, persistence of pain, damage to nerves and blood vessels, DVT, PE, car diopulmonary complications and . The patient expressed a thorough understanding of the risks and benefits of surgery and has elected to proceed. Consent was signed. Status: Acute
[2020-05-14] MEDS: SODIUM CHLORIDE 0.9% 1,000 ML 100 ML IV ×2 (08:36→23:13)
--- NOTE | 2020-05-14 09:44 | DI.US.S_ITS ---
PROCEDURE: US ARTERIAL DUPLEX LE BI INDICATIONS: claudication TECHNIQUE: Color and pulse Doppler interrogation was performed of both lower extremity arterial systems, with image documentation. COMPARISON: None. FINDINGS: Right lower extremity: Common femoral artery: 98 cm/sec, with triphasic flow. Deep femoral artery: 98 cm/sec, with triphasic flow. Proximal superficial femoral artery: 53 cm/sec, with triphasic flow. Mid superficial femoral artery: 85 cm/sec, with triphasic flow. Distal superficial femoral artery: 67 cm/sec, with triphasic flow. Popliteal artery: 43 cm/sec, with triphasic flow. Posterior tibial artery: 62 cm/sec, with triphasic flow. Anterior tibial artery/dorsalis pedis: 30 cm/sec, with triphasic flow. Camacho-scale imaging description: Mild atherosclerotic calcific and soft plaque. Left lower extremity: Common femoral artery: 70 cm/sec, with monophasic flow. Deep femoral artery: 50 cm/sec, with monophasic flow. Proximal superficial femoral artery: 89 cm/sec, with monophasic flow. Mid superficial femoral artery: 116 cm/sec, with monophasic flow. Distal superficial femoral artery: 82 cm/sec, with monophasic flow. Popliteal artery: 88 cm/sec, with monophasic flow. Posterior tibial artery: 43 cm/sec, with monophasic flow. Anterior tibial artery/dorsalis pedis: 27 cm/sec, with monophasic flow. Camacho-scale imaging description: Moderate calcific and soft plaque. IMPRESSION: Asymmetric arterial insufficiency involving the entire left lower extremity in this patient with open wound and necrosis of the left great toe. 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 No sign of arterial insufficiency at the right lower extremity. The current findings are indicative of significant potential for improving arterial supply to the left lower extremity. Dictated by: Derek Caba M.D. on 05/14/2020 at 14:59 Approved by: Derek Caba M.D. on 05/14/2020 at 15:10
--- NOTE | 2020-05-14 11:31 | PC.NURSE ---
Addendum entered by Rico Fung R.N. 05/14/20 12:02: Lab called about results for pt blood culture and wound culture. Both are growing group B strep. Dr. Coon was notifed of results at 1200. Original Note: Patient BS 261 at 0600, per Dr. Mark, give sliding scale Insulin. Patient had 7 units per protocol. Patient is NPO. Patient denies pain on L big toe. CMS intact, pedal pulses weak, patient admits baseline neuropathy bilaterally.
[2020-05-14 11:53] LABS: Acinetobacter baumannii Not Detected (Not Detect); Candida albicans Not Detected (Not Detect); Candida glabrata Not Detected (Not Detect); E. coli Not Detected (Not Detect); Enterobacter cloacae complex Not Detected (Not Detect); Enterobacteriaceae species Not Detected (Not Detect); Enterococcus species Not Detected (Not Detect); Haemophilus influenzae Not Detected (Not Detect); Listeria monocytogenes Not Detected (Not Detect); Neisseria meningitidis Not Detected (Not Detect); Proteus species Not Detected (Not Detect); Pseudomonas aeruginosa Not Detected (Not Detect); Serratia marcescens Not Detected (Not Detect); Staphylococcus species Not Detected (Not Detect); Streptococcus agalactiae (Gr B Detected (Not Detect); Streptococcus pneumonia Not Detected (Not Detect); Streptococcus pyogenes (Gr A) Not Detected (Not Detect); Streptococcus species Detected (Not Detect)
[2020-05-14 11:54] LABS: Candida krusei Not Detected (Not Detect); Candida parapsilosis Not Detected (Not Detect); Candida tropicalis Not Detected (Not Detect)
--- NOTE | 2020-05-14 12:25 | DI.ECHO.S_ITS ---
Echocardiogram Report + + :Name: STEPHIE GILL Study Date: 05/14/2020 Height: 73 in : :Hospital Weight: 150 lb : : Gender: Male BSA: 1.9 m2 : :: 1960 Age: 59 yrs BP: 122/60 mmHg: :Reason For Study: BACTEREMIA : :Ordering Physician: HOSPITALIST, : :NOAH Performed By: Kayla Perkins : :Referring: VEE MAI : + + Interpretation Summary The left ventricle is normal in size and wall thickness. Left ventricular systolic function is normal without focal wall motion abnormalities. The ejection fraction is estimated to be 60-65%. Diastolic parameters suggest probable normal left ventricular diastolic function and normal filling pressures. The right ventricle is mildly dilated. The right ventricular systolic function is normal. The right ventricular systolic pressure is estimated to be at least 30 mmHg based on an estimated right atrial pressure of 3 mm Hg. Both atria are normal in size. There is no significant valvular heart disease. There is no obvious valvular vegetation identified on this exam. Consider KEISHA if there is a high degree of clinical suspicion for endocarditis and clinically appropriate. The aortic root is normal size. Procedure: A two-dimensional transthoracic echocardiogram with color flow and Doppler was performed. There is no prior echocardiogram noted for this patient. The study quality was technically adequate. The patient was in sinus rhythm with heart rates between 70-72 bpm during the exam. Left Ventricle: The left ventricle is normal in size and wall thickness. Left ventricular systolic function is normal without focal wall motion abnormalities. The ejection fraction is estimated to be 60-65%. Diastolic parameters suggest probable normal left ventricular diastolic function and normal filling pressures. Right Ventricle: The right ventricle is mildly dilated. The right ventricular systolic function is normal. Atria: Both atria are normal in size. There is no Doppler evidence for an interatrial shunt. Mitral Valve: The mitral valve is normal in structure and function. There is trace mitral regurgitation. Aortic Valve: The aortic valve is trileaflet. The aortic valve opens well. There is no aortic valve stenosis. No aortic regurgitation is present. Tricuspid Valve: The tricuspid valve is normal in structure and function. There is trace tricuspid regurgitation. The right ventricular systolic pressure is estimated to be at least 30 mmHg based on an estimated right atrial pressure of 3 mm Hg. Pulmonic Valve: The pulmonic valve leaflets are thin and pliable; valve motion is normal. There is no pulmonic valvular regurgitation. There is no significant valvular heart disease. There is no obvious valvular vegetation identified on this exam. Consider KEISHA if there is a high degree of clinical suspicion for endocarditis and clinically appropriate. Great Vessels: The aortic root is normal size. The ascending aorta could not be visualized. The IVC is of normal diameter and collapses greater than 50% with a sniff. This suggests a low right atrial pressure of 3 mm Hg. Pericardium/ Pleura There is no pericardial effusion. There is no pleural effusion. MMode/2D Measurements & Calculations LVIDd: 5.9 cm LVOT diam: 2.3 cm LVIDs: 3.7 cm Ao root diam: 3.5 cm FS: 37.5 % Ao Arch Diam (Prox Trans): 2.9 cm EPSS: 1.3 cm IVSd: 0.89 cm LVPWd: 0.92 cm LV hebert. diameter/BSA (cm/m^2): 3.1 LV sys. diameter/BSA (cm/m^2): 1.9 LA A2 area: 24.0 cm2 RA long axis: 5.3 cm LA A4 area: 16.2 cm2 RA area: 15.5 cm2 LA length (vol): 5.5 cm RA vol: 39.0 ml LA vol: 60.6 ml RA : 20.5 ml/m2 LA vol index: 31.8 ml/m2 IVC diam: 1.8 cm RVD1 (basal): 4.2 cm TAPSE: 2.7 cm Doppler Measurements & Calculations Ao V2 max: 167.5 cm/sec LVOT Max Buddy: 133.3 cm/sec Ao V2 mean: 100.8 cm/sec LV V1 max P.1 mmHg Ao max P.2 mmHg LV V1 VTI: 30.3 cm Ao mean P.0 mmHg CHRIS(I,D): 3.9 cm2 Ao V2 VTI: 33.8 cm CHRIS(V,D): 3.4 cm2 sev ratio: 0.90 CHRIS indexed to BSA (cm^2/m^2): 2.0 MV E max buddy: 99.1 cm/sec TR max buddy: 258.2 cm/sec MV A max buddy: 87.1 cm/sec TR max P.7 mmHg MV E/A: 1.1 PA V2 max: 97.9 cm/sec Med Peak E' Buddy: 11.4 cm/sec PA V2 mean: 62.8 cm/sec E/E' med: 8.7 PA mean P.8 mmHg Lat Peak E' Buddy: 13.0 cm/sec PA pr(Accel): 31.0 mmHg E/E' lat: 7.6 E/e' average: 8.2 MV dec time: 0.22 sec SV(LVOT): 130.5 ml Reading Physician:01:24 PM
--- NOTE | 2020-05-14 12:59 | CM.DANOTE ---
Patient is a 59 year old male who was admitted on 05/13/20 for Bad toe, diabetic. Pt has MCR for insurance and his PCP is not listed. EMR was reviewed. Per MD, pt with uncontrolled diabetes and admitted for cellulitis. Per Surgeon Consult, pt with necrotic tissue and recommending partial big toe amputation today at 1300. SW met bedside with pt and his supportive sister Roseanne and explained role and pt lives in [place] in a mobile home with a female roommate who is not available to provide assist at d/c. Pt is independent with ADL's but does not drive and is [place] and carries a dx of Developmental Delay and believes he is receiving Social Security Disability. Per sister, pt does not have any insulin at home and does not have any way to check his blood sugars even. Unknown if pt currently on Medicaid for medical coverage and help with medication cost but she believes that he receives food assistance through Medicaid. (SW emailed admissions counselors to see if they can confirm if he is currently active with Medicaid). Pt functional enough to manage his own ADL's although he is not compliant with medication management and sister states he does not eat healthy, mostly junk. Sister and their father live nearby and check on pt regularly and try to provide him with healthy food and protein on a regular basis. 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 Sister confirms that the plan for d/c after his surgery today around 1300 is to discharge to their father's house in [place] where sister currently lives as well and they will assist pt at d/c and try to get him on a regular routine and checking his blood sugars regularly. SW discussed that the current plan is to d/c on oral abx pending cultures but possibility of IV-Abx and then SNF would likely be the option and sister acknowledges understanding and realizes that we will have to see how pt does after surgery. Plan: SW to follow closely after surgery to determine d/c planning needs of possible more surgery and then d/c to father's house vs SNF if IV-Abx needed. DEJUAN Willis Discharge Planning/Care Management CM Discharge Assessment Start: 05/14/20 12:56 Freq: Status: Active Protocol: Document 05/14/20 12:56 BF (Rec: 05/14/20 12:59 BF [id number]) Discharge Planning Assessment Assigned [employer] DEJUAN Farris Advance Directives? No Advance Directives on File No History Provided By Patient,Family Member,Medical Record Has Patient been admitted in last 30 No days? Prior Living Arrangements Mobile home Household Members other Type of transporation used prior to Relies on Others admit Comment Lives in mobile home with female roommate who is not available for consistent assist or CG. Pt is independent with ADL's at baseline. Independent with ADL's Yes Is patient alert and oriented? Yes: [place] and has hx of DD Needs Assistance With Managing Medications Caregiver for Another No Comment Patient has a son but son does not live with pt Patient/Family Preference Home with Home Health Comment Pending toe amputation surgery today Barriers to Discharge No Discharge Plan Home with Home Health Community Services Physical Therapy,Home Health Nurse Transportation Arrangement Sister bedside and available for transport if pt safe for home at d/c Additional Comment Pending toe amputation surgery and needs at d/c, r/o IV-Abx Whiteboard Updated in Patient Room with Yes name and ext. # of [employer] Education Teachers Review Status In Process Please Provide Date Initial DC 05/14/20 Assessment Was Performed Next Review Type Continued Stay Review
[2020-05-14] MEDS: KETOROLAC 15 MG/ML VIAL IV (14:10)
--- NOTE | 2020-05-14 16:26 | P.PN_ITS ---
Subjective Subjective Date Patient Seen: 05/14/20 Time Patient Seen: 16:26 Interval history: Craig Guerin is a 59 y.o. male type 2 poorly controlled Diabetes type 2 with a hemoglobin A1c of 13.8 presented after a several-day history of pain in his left great toe for further evaluation. He also has potentially developmental delay as per his sister who was at bedside and is very hard of hearing. Patient further admitted to claudication type symptoms primarily of his left lower extremity for the past few months. He was febrile, wound cultures are currently growing a staph aureus as well as a group B strep. Blood cultures resulted as positive today for group B strep. He remains on ceftriaxone and vancomycin at this time. Echocardiogram has been performed but currently is pending final read. Did obtain an arterial duplex study which showed the absence of biphasic or triphasic flow over the entire left lower extremity indicative of a high-grade stenosis or occlusion on the left side at a more proximal area in the likely pelvic vasculature. Did discuss with orthopedic surgery who recommended continuing with plan for partial toe amputation, he may need further workup for arterial insufficiency in the near future. The patient does not complain of pain over his left foot but states that it is non. He feels well and denies any nausea, vomiting. He did have a fever this afternoon. Exam Vital Signs (past 8 hours): - 05/14/20 12:00 05/14/20 15:45 Temperature 100.7 F H 100.1 F H Pulse Rate 71 71 Respiratory Rate 18 18 Blood Pressure 137/68 130/59 L Pulse Oximetry 97 97 Oxygen Delivery Method Room Air Oxygen Flow Rate 0 Narrative Exam Narrative: Gen: Alert, oriented, thin 59 y.o. male, appears chronically ill, hard of hearing HEENT: normocephalic, atraumatic, conjunctiva clear, sclera non-icteric, edentulous, oral mucosa pink and moist, strong odor of tobacco on him Neck: supple, full ROM, no JVD, trachea is midline Resp: Lungs CTA, non-labored breathing CV: RRR, no murmur or rubs. Palpable right DP and PT pulses, left lower extr emity unable to palpate distal lower extremity pulses. Abd: soft, non-tender, normoactive BTs Skin: Open wound on left great toe, non-draining, erythema extending from foot to just below knee, no lesions or rashes Neuro: Very hard of hearing, alert and oriented X 4 w/no focal deficits. Speech clear and coherent. Extremities: Left great toe is peeling, erythematous and appears to have some necrotic tissue around the cutaneous borders of his nail bed, nail is missing. Moves all 4 extremities, is ambulatory, negative Tika?s sign Psyche: normal mood and affect. Objective Labs Result Diagrams: 05/14/20 05:20 05/14/20 05:20 Labs: Laboratory Results - last 24 hr 05/13/20 05/13/20 05/13/20 19:55 19:55 19:55 WBC 10.7 RBC 4.28 L Hgb 13.4 L Hct 40.2 L MCV 94.0 MCH 31.4 MCHC 33.4 RDW 12.6 Plt Count 315 Neut % (Auto) 67.7 Lymph % (Auto) 16.3 L Larue % (Auto) 13.5 Eos % (Auto) 1.5 L Baso % (Auto) 1.0 Neut # (Auto) 7300 H Lymph # (Auto) 1800 Larue # (Auto) 1500 H Eos # (Auto) 200 Baso # (Auto) 100 ESR Sodium 132 L Potassium 4.3 Chloride 95 L Carbon Dioxide 26 BUN 15 Creatinine 0.62 L Estimated GFR > 60.0 BUN/Creatinine Ratio 24.2 H Glucose 416 H Hemoglobin A1c Lactate Calcium 8.9 Magnesium Total Bilirubin 0.7 AST 14 L ALT 11 Alkaline Phosphatase 90 C-Reactive Protein Total Protein 7.8 Albumin 3.8 Globulin 4.0 Albumin/Globulin Ratio 1.0 Lipase Procalcitonin < 0.05 A. baumannii (PCR) Sharla albicans (PCR) C. glabrata (PCR) C. krusei (PCR) C. parapsilosis (PCR) C. tropicalis (PCR) COVID-19 PCR Enterobacteriac sp PCR E. cloacae complex PCR Enterococcus sp PCR E. coli (PCR) H. influenzae (PCR) Klebsiella oxytoca PCR Klebsiella pneumoniae List. monocytogenes PCR N. meningitidis (PCR) Proteus species (PCR) Serratia marcescens PCR Staphylococcus sp PCR Staph aureus (PCR) mecA-Methicil Res Gene Streptococcus sp PCR Group A Strep (PCR) Strep agalactiae (PCR) Strep pneumoniae (PCR) P. aeruginosa (PCR) Grupo/B-Vanco Res Genes KPC-Carbap Res Gene PCR 05/13/20 05/13/20 05/13/20 19:55 19:55 19:55 WBC RBC Hgb Hct MCV MCH MCHC RDW Plt Count Neut % (Auto) Lymph % (Auto) Larue % (Auto) Eos % (Auto) Baso % (Auto) Neut # (Auto) Lymph # (Auto) Larue # (Auto) Eos # (Auto) Baso # (Auto) ESR 70 H Sodium Potassium Chloride Carbon Dioxide BUN Creatinine Estimated GFR BUN/Creatinine Ratio Glucose Hemoglobin A1c Lactate 1.3 Calcium Magnesium Total Bilirubin AST ALT Alkaline Phosphatase C-Reactive Protein Total Protein Albumin Globulin Albumin/Globulin Ratio Lipase 145 Procalcitonin A. baumannii (PCR) Sharla albicans (PCR) C. glabrata (PCR) C. krusei (PCR) C. parapsilosis (PCR) C. tropicalis (PCR) COVID-19 PCR Enterobacteriac sp PCR E. cloacae complex PCR Enterococcus sp PCR E. coli (PCR) H. influenzae (PCR) Klebsiella oxytoca PCR Klebsiella pneumoniae List. monocytogenes PCR N. meningitidis (PCR) Proteus species (PCR) Serratia marcescens PCR Staphylococcus sp PCR Staph aureus (PCR) mecA-Methicil Res Gene Streptococcus sp PCR Group A Strep (PCR) Strep agalactiae (PCR) Strep pneumoniae (PCR) P. aeruginosa (PCR) Grupo/B-Vanco Res Genes KPC-Carbap Res Gene PCR 05/13/20 05/13/20 05/13/20 19:55 19:55 19:55 WBC RBC Hgb Hct MCV MCH MCHC RDW Plt Count Neut % (Auto) Lymph % (Auto) Larue % (Auto) Eos % (Auto) Baso % (Auto) Neut # (Auto) Lymph # (Auto) Larue # (Auto) Eos # (Auto) Baso # (Auto) ESR Sodium Potassium Chloride Carbon Dioxide BUN Creatinine Estimated GFR BUN/Creatinine Ratio Glucose Hemoglobin A1c 13.8 H Lactate Calcium Magnesium Total Bilirubin AST ALT Alkaline Phosphatase C-Reactive Protein 6.3 H Total Protein Albumin Globulin Albumin/Globulin Ratio Lipase Procalcitonin A. baumannii (PCR) Not detected Sharla albicans (PCR) Not detected C. glabrata (PCR) Not detected C. krusei (PCR) Not detected C. parapsilosis (PCR) Not detected C. tropicalis (PCR) Not detected COVID-19 PCR Enterobacteriac sp PCR Not detected E. cloacae complex PCR Not detected Enterococcus sp PCR Not detected E. coli (PCR) Not detected H. influenzae (PCR) Not detected Klebsiella oxytoca PCR Not detected Klebsiella pneumoniae Not detected List. monocytogenes PCR Not detected N. meningitidis (PCR) Not detected Proteus species (PCR) Not detected Serratia marcescens PCR Not detected Staphylococcus sp PCR Not detected Staph aureus (PCR) Not detected mecA-Methicil Res Gene Not Reportable Streptococcus sp PCR Detected H Group A Strep (PCR) Not detected Strep agalactiae (PCR) Detected H Strep pneumoniae (PCR) Not detected P. aeruginosa (PCR) Not detected Grupo/B-Vanco Res Genes Not Reportable KPC-Carbap Res Gene PCR Not Reportable 05/13/20 05/14/20 05/14/20 20:55 05:20 05:20 WBC 9.2 RBC 4.07 L Hgb 12.6 L Hct 38.2 L MCV 94.0 MCH 31.1 MCHC 33.1 RDW 12.4 Plt Count 260 Neut % (Auto) 66.7 Lymph % (Auto) 17.9 L Larue % (Auto) 13.2 Eos % (Auto) 1.2 L Baso % (Auto) 1.0 Neut # (Auto) 6100 Lymph # (Auto) 1600 Larue # (Auto) 1200 H Eos # (Auto) 100 Baso # (Auto) 100 ESR Sodium 136 L Potassium 3.8 Chloride 100 Carbon Dioxide 30 BUN 17 Creatinine 0.57 L Estimated GFR > 60.0 BUN/Creatinine Ratio 29.8 H Glucose 293 H D Hemoglobin A1c Lactate Calcium 8.5 Magnesium 2.0 Total Bilirubin 0.4 AST 11 L ALT 8 Alkaline Phosphatase 67 C-Reactive Protein Total Protein 6.7 Albumin 3.3 L Globulin 3.4 Albumin/Globulin Ratio 1.0 Lipase Procalcitonin A. baumannii (PCR) Sharla albicans (PCR) C. glabrata (PCR) C. krusei (PCR) C. parapsilosis (PCR) C. tropicalis (PCR) COVID-19 PCR Negative Enterobacteriac sp PCR E. cloacae complex PCR Enterococcus sp PCR E. coli (PCR) H. influenzae (PCR) Klebsiella oxytoca PCR Klebsiella pneumoniae List. monocytogenes PCR N. meningitidis (PCR) Proteus species (PCR) Serratia marcescens PCR Staphylococcus sp PCR Staph aureus (PCR) mecA-Methicil Res Gene Streptococcus sp PCR Group A Strep (PCR) Strep agalactiae (PCR) Strep pneumoniae (PCR) P. aeruginosa (PCR) Grupo/B-Vanco Res Genes KPC-Carbap Res Gene PCR Assessment & Plan Assessment & Plan narrative: Craig Guerin will be admitted for further management and treatment of a left toe cellulitis and suspected necrosis. 1. Bacteremia secondary to strep agalactiae -source is the patient's left foot infection with likely osteomyelitis. Plan for partial toe amputation today with orthopedic surgery for source control. -have ordered for transthoracic echocardiogram. May need KEISHA at an outside facility. -will need to discuss with infectious disease regarding optimal timing and duration of antibiotics, this could be performed if he is transferred to [facility] for vascular interventions. -continue ceftriaxone and vancomycin at this time given wound cultures growing both group B strep and staph aureus. 2. Left toe diabetic foot infection w/suspected necrosis and likely osteomyelitis, acute, present on admission -He was started on IV ceftriaxone and vancomycin in the ED and these will be continued -Dr. Gonzalez was consulted and plans for amputation for source control later today. He has poor arterial flow to his entire distal left lower extremity. Will discuss with a vascular surgeon tomorrow at [facility] regarding need for Urgent intervention or additional imaging. -wound cultures currently growing group B strep and Staph aureus, will follow-up final sensitivities. Patient is also bacteremic and having fevers. 3. Diabetes type 2, poorly controlled with an A1c of 13.7, present on admission -Continue home dose of Lantus 35 units at bedtime when not NPO, his sugars are uncontrolled. Will reduce this to 20 units tonight given prolonged NPO status. -continue High dose correctional insulin q 6 hours -Diabetic education by dietitian ordered 4. Tobacco dependence, severe -Patient is counseled on smoking cessation, and educated on how it adversely affects wound healing 5. Elevated blood pressure without a diagnosis of hypertension -overnight patient was given a 1 time dose of metoprolol, given type 2 diabetes will start lisinopril after operative interventions if his blood pressure remains elevated. Consults: Dr. Hackett, Orthopedic surgery, consult and involvement is appreciated. Dispo: Admitted under inpatient status, he may need to be transferred for further vascular interventions as noted above Code: Full COVID-19 COVID-19 status: Negative
[2020-05-14] MEDS: ONDANSETRON 4 MG/2 ML INJ IV ×2 (17:04→23:30)
[2020-05-14] MEDS: LACTATED RINGERS 1,000 ML 42 ML IV (20:42)
[2020-05-14] MEDS: CEFTRIAXONE 1 GM/50 ML FROZ.PIGGY IV (21:00)
--- NOTE | 2020-05-14 21:09 | PM.PREOP ---
Pre-operative Note COVID-19 COVID-19 status: Negative Interval Note History & Physical reviewed/Exam performed by Physician: Yes Changes to H&P: No
--- NOTE | 2020-05-14 21:10 | PM.OP.1 ---
Operative Date/Time/Diagnoses Date of procedure: 05/14/20 Pre-op diagnosis: Diabetic foot ulcer, left great toe with necrosis Bacteremia Uncontrolled type 2 diabetes hemoglobin A1c 13.8 Post-op diagnosis: same Procedure & Clinicians Procedure: Partial amputation left great toe CPT code 07001 left great toe modifier TA Same procedure as scheduled: Yes Indications: The patient is a 59-year-old male with uncontrolled diabetes type to hemoglobin A1c 13.8. He is a diabetic foot infection of his great toe on the left side. His necrosis of the left toe distal phalanx dorsal surface with nail loss and ascending cellulitis. Also presented with bacteremia. A significant dorsal soft tissue damage to the level of the IP joint. He has an unsalvageable distal phalanx. He has been indicated for partial amputation left great toe. In addition Doppler arterial ultrasounds of bilateral extremities a demonstrated asymmetric left-sided stenosis. Due to his bacteremia and necrosis he has been indicated for partial amputation of the left great toe we will do this 1st and then pursue a consultation with IR or vascular surgery for potential revascularization to aid with healing and/or prevent additional problems or proximal amputation needs. The risks and benefits of the procedure have been discussed with the patient and he has been given the opportunity to ask questions. The risks of surgery include but are not limited to infection, need for additional procedures or more proximal amputation, persistence of pain, damage to nerves and blood vessels, DVT, PE, cardiopulmonary complications and . The patient expressed a thorough understanding of the risks and benefits of surgery and has elected to proceed. Consent was signed. Surgeon: Lupe Hackett Click Yes if Unassisted: Yes Anesthesia Type: General Operative Notes Findings: Necrotic left great toe involving the tire dorsum of the distal phalanx. Nail absent as had fallen off prior to presentation necrosis involving the medial half of the nail bed deep to bone Closure Type: primary Specimen(s): other (Left great Toe for culture and pathology) Blood products transfused: none Procedure in detail: Patient was seen in the preoperative area the site of surgery marked informed consent confirmed. The patient was brought back to the operating room by the anesthesia team. The patient was placed supine on the operative table bony prominences were well padded. SCD was on the non operative leg. General anesthetic was administered. The left lower extremities prepped and draped in the standard sterile fashion. A formal time-out procedure was performed confirming the patient's side and site of surgery and administration of appropriate antibiotics. The patient was on scheduled broad-spectrum antibiotics. Attention was turned to the left great toe. A glove finger was cut off and placed at the base the toe as a tourniquet. A fishmouth incision was made with a longer plantar flap and the distal tone phalanx were amputated sharp dissection straight to bone across the interphalangeal joint. The TPS saw was brought into remove the prominence of the proximal phalanx condyles fluoro was checked and the ends were contoured with the rasp. Amputated digit was divided and sent to pathology and microbiology. There did not appear to be any bony involvement of the proximal phalanx and this bled well. Wound Was copiously irrigated with saline the flexor and extensor tendons were trimmed and allowed to retract. The neurovascular bundles were isolated with medially and laterally and cut and allowed to retract. The tourniquet was removed and hemostasis was achieved. Tissue flaps were fashioned and approximated with PDS suture followed by Monocryl and nylon in the skin. Dressings were placed with Xeroform gauze Rosa Maria Kerlix and an Elan wrap. Patient was woken from anesthesia and taken to the PACU in good condition. There no immediate complications from this procedure. Counts were correct. Complications: none Post-operative Condition: stable Disposition: PACU Plan for aftercare: Weightbear in stiff soled postop shoe flat foot or heel weight-bearing. Scheduled antibiotics for his bacteremia. Recommend follow-up with vascular or interventional Radiology for consideration revascularization left lower extremity. Recommended strict glycemic control.
--- NOTE | 2020-05-14 21:56 | SUR.OPER ---
Supine on padded OR bed, head on pillow, arms secured on padded arm boards at <90 degrees abduction, legs uncrossed, safety belt at thigh, tape over blanket over lower legs.
[2020-05-14] MEDS: BUPIVACAINE 0.25% (PF) VIAL 30 ML INJ (22:05)
--- NOTE | 2020-05-14 22:41 | SUR.OPER ---
post op shoe
--- NOTE | 2020-05-14 22:51 | SUR.PHASEI ---
Pt quick to wake, denies pain, no nausea, taking ice chips well, CBG 225, Dr. Beal made aware, no new orders.
--- NOTE | 2020-05-14 22:55 | SUR.PHASEI ---
Report attempted, not available, brought up to room for face to face report.
--- NOTE | 2020-05-14 23:12 | SUR.PHASEI ---
Face to face report to Lorena. Pt left in stable condition, bed low, locked, SCD's on and call mendez in reach. Sister at bedside- supportive.
[2020-05-14] MEDS: INSULIN GLARGINE 100 UNIT/ML 3ML PEN 20 UNIT SUBCUT (23:38)
[2020-05-15 00:05] VITALS: BP 132/65; PULSE 78; RESP 18; TEMP 36.9; O2SAT 98
[2020-05-15 01:05] VITALS: BP 112/58; PULSE 78; RESP 18; TEMP 37; O2SAT 96
[2020-05-15 02:05] VITALS: BP 112/55; PULSE 76; RESP 12; TEMP 37; O2SAT 98
--- NOTE | 2020-05-15 03:23 | PC.NURSE ---
Seen and assessed at 2335. Is alert and oriented. Breath sounds CTA with RA sat of 98%. HRR. Complaining of nausea and was medicated with Zofran after which nausea resolved and was able to tolerate some clear liquids. BT absent. Denies dysuria, frequency or urgency with urination. Able to move self in bed. Gait not assessed as just returned from surgery. Dressing to left foot is CDI; wearing ortho boot. Has chronic neuropathy in bilateral feet. Toes of left foot are warm with good capillary refill and denies any numbness in toes; able to wiggle toes. Wearing bilateral calf SCD's. Denies pain. Fall risk score is moderate; bed alarm is activated. Sister at bedside. Now again is complaining of nausea and states he has been having emesis but sister has apparently been emptying basin. DUSTY Maldonado, informed as too early to give additional Zofran. Order received for Ephraim.
[2020-05-15] MEDS: METOCLOPRAMIDE 10 MG/2 ML INJ 5 MG IV (03:51)
[2020-05-15 04:00] VITALS: BP 130/59; PULSE 69; RESP 18; TEMP 36.6; O2SAT 98
[2020-05-15] MEDS: VANCOMYCIN 1,000 MG/200 ML PIGGYBACK 200 MG IV (04:46)
[2020-05-15 07:00] VITALS: O2SAT 96
[2020-05-15] MEDS: ONDANSETRON 4 MG/2 ML INJ IV (07:39)
[2020-05-15 07:50] VITALS: BP 124/60; PULSE 67; RESP 16; TEMP 37; O2SAT 96
[2020-05-15] MEDS: INSULIN ASPART 100 UNIT/ML INSULN PEN SUBCUT ×2 (08:18→12:03)
--- NOTE | 2020-05-15 09:35 | DI.MRI.S_ITS ---
PROCEDURE: MR RUN OFF 3 STAGES ABD START INDICATIONS: decreased L arterial flow, assess more proximal vasculature TECHNIQUE: Precontrast axial and coronal TruFISP acquired through the abdomen and pelvis. Multi-station dynamic coronal MRA using Care Bolus timing from the kidneys to the ankles during the administration of contrast, with 3-dimensional maximum intensity projection (MIP) reformats constructed. COMPARISON: [facility], CR, XR FOOT LT MIN 3V, 05/13/2020, 20:07. [facility], US, US ARTERIAL DUPLEX LE BI, 05/14/2020, 10:17. FINDINGS: Image quality: Excellent. ABDOMEN: Aorta: Aorta is normal in caliber and is patent. Renal arteries: Renal arteries all appear patent. Extravascular soft tissues: Visualized solid organs are normal in size on limited pre-contrast images. Bowel loops are normal in caliber. No free fluid. No retroperitoneal or mesenteric adenopathy by size criteria. No ventral hernias. Bones: Marrow demonstrates normal overall signal. PELVIS AND BILATERAL LOWER EXTREMITIES: Right sided vessels: Mild atherosclerotic irregularity at the right common iliac artery, with less than 50% stenosis. More inferiorly at the junction of the proximal and middle 3rds of the right superficial femoral artery there is a short segmental stenosis measuring approximately 1.5 cm in length, with an estimated 80% stenosis. Below bone this level the more distal superficial femoral artery, popliteal artery, tibioperoneal trunk, and anterior and posterior tibial arteries appear patent with extension of posterior tibial artery flow across the ankle into the foot. The anterior tibial artery appears stenosis or occluded at approximately the ankle joint level, and there is a 2nd vessel at the lateral aspect of the ankle that appears to reconstitute through collateral flow and extend anteriorly into the foot. Left sided vessels: The common iliac artery on the left is widely patent but immediately after its bifurcation the proximal external iliac artery on the left shows a high-grade stenosis of at least 80%. The external iliac artery continues inferiorly with normal caliber, and flow through the common femoral and superficial femoral arteries appears normal, tracking into and through much of the popliteal artery. The distal popliteal artery on the left, however, appears significantly narrowed with collateral vessels branching and extending inferiorly through the area of the tibioperoneal trunk. There appears to be reconstitution of flow within the anterior tibial artery which then terminates at the ankle joint level. Reconstitution of flow within the posterior tibial artery also appears present, crossing the ankle and extending into the foot. Additionally, a more superficial posterior artery can be seen extending and continuing across the ankle joint level medially, extending towards the left forefoot. IMPRESSION: The sonographic findings of significant arterial insufficiency to the left lower extremity is supported by this examination, with an area of high-grade short segmental stenosis at the origin of the external iliac artery on the left. Additional left-sided arterial insufficiency is induced by what appears to be a high-grade stenosis at the distal popliteal artery with collateral flow traversing inferiorly into the foot on the left. Additional arterial insufficiency is present to a lesser degree on the right, predominantly involving the short-segment stenosis in the right superficial femoral artery at approximately the junction of the spine proximal and middle thirds. The distal left popliteal artery appears highly stenosed with collateral vessels crossing the area of stenosis and dedicated catheter angiography would likely allow improved visualization of the exact anatomy in this area. Catheter angiography likely is warranted for both additional diagnosis and treatment of the short segmental areas of stenosis bilaterally discussed above. Dictated by: Derek Caba M.D. on 05/15/2020 at 10:33 Approved by: Derek Caba M.D. on 05/15/2020 at 11:00
--- NOTE | 2020-05-15 12:50 | P.DS_ITS ---
History of Present Illness History of Present Illness Date Patient Seen: 05/15/20 Time Patient Seen: 12:50 Chief complaint: diabetic, toe is bad Narrative: As per DUSTY Lopes: Craig Guerin is a 59 y.o. male type 2 poorly controlled Diabetes type 2 with a hemoglobin A1c of 13.8 presented after a several-day history of pain in his left great toe. Patient states that he went to his doctor and was given medicine for nerve pain. Much of the history is provided by the sister who states that the patient is slow meaning developmentally delayed. She recently relocated to the area to take care of their father and now is concerned that she may need also take care of him. At the time he stated that his toe was peeling and that it hurt and today he called Roseanne his sister and asked her to come by and take a look at his toe as his toenail had fallen off today. She looked at his toe and brought him to the emergency department for further evaluation. He denies fevers sweats or chills, he does state that he has most of his teeth out, denies shortness of breath, chest pain, nausea vomiting, joint pain, dysuria, diarrhea or constipation. He does state that he does not feel the toes of his feet. In the emergency department they did have an x-ray done, reported negative for suspicion for osteomyelitis. Is febrile at 1:02 a.m., blood pressure 170/75, heart rate 80, respiratory 18, oxygen saturation 98% on room air, he weighs 68 kg. White count 10.7, RBC 4.28, hemoglobin 13.4, hematocrit 40.2, platelet count 315, neutrophils are elevated at 7300. Sodium 132, potassium 4.3, chloride 95, bicarb 26, BUN 15, creatinine 0.62, GFR is greater than 60, glucose is 416, A1c is 13.8, lactated 1.3, calcium 8.9, bilirubin 0.7, AST 14, ALT 11, alk-phos 90, C-reactive protein is elevated at 6.3, procalcitonin is negative and COVID- 19 is negative. Discharge Providers Provider Date of admission: 05/13/20 21:08 Discharge Date: 05/15/20 Consults: 05/13/20 20:54 Consult to Orthopedic Surgery Stat Comment: Consulting Provider: Lupe Hackett Reason for consultation: L toe infection Has provider been notified: Yes 05/13/20 21:15 Consult to Physician Routine Comment: Consulting Provider: Lupe Hackett Reason for consultation: left foot cellulitis and necrosis Has provider been notified: Yes 05/13/20 23:28 Consult to Dietitian, Adult Routine Comment: Reason For Exam: diabetic teaching A1c is 13.7 Consult to ENTEROSTOMAL THERAPY NURSE - [employer] Routine Comment: Cont. Roseanne, sister re: capacity ENTEROSTOMAL THERAPY NURSE Consult: [facility] Res Need Discharge provider: Abel Mark DO Summary Hospital Course Discharge Diagnosis: Please see hospital course by problem list noted below Hospital Course: Craig Guerin is a 59-year-old male with a past medical history of diabetes, active smoker, possible developmental delay and is hard of hearing who presented with a left great toe diabetic foot infection with concern for necrosis. He was admitted and placed on IV antibiotics of ceftriaxone and vancomycin. Wound cultures ultimately grew a group B strep and MSSA, and blood cultures did result positive for group B strep. TTE was performed which did not show any evidence of endocarditis, and there were no significant valvular issues, wall motion abnormalities, and did show a normal ejection fraction. On admission exam, patient did not have great pulses on his left lower extremity. Initially performed an arterial duplex study which showed monophasic flow throughout his entire left lower extremity with concern for a more proximal occlusion. 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 Infectious disease at [facility] was called given his group B strep bacteremia. They recommended an MRI of his left foot to ensure no residual osteomyelitis. If there is no osteomyelitis they recommended a total course of 5 days of IV antibiotics, with a transition to oral at that point. If osteomyelitis is noted they recommended 6 weeks of IV therapy. Then discussed with vascular surgery at [place] who recommended transfer for an angiogram. Patient was accepted for transfer by Dr. Mccrary at [facility]. 1. Bacteremia secondary to strep agalactiae -source is the patient's left foot infection with likely osteomyelitis. S/p partial toe amputation with orthopedic surgery on 05/14/2020. -TTE as noted above without evidence of endocarditis. ID did not recommend KEISHA as long as blood cultures were only group B strep. If MSSA results they would recommend he have a KEISHA. If no evidence of osteomyelitis they recommended 5-7 day course of IV antibiotics for bacteremia with then transition to orals. Did not ask total duration of antibiotic therapy that they would recommend. -blood cultures positive on 05/13 blood draw. Pending repeat cultures today from 05/15. -vancomycin discontinued on 05/15. Recommend continued ceftriaxone. Today is day 3 of IV ceftriaxoned therapy since admission. 2. Left toe diabetic foot infection w/suspected necrosis and likely osteomyelitis, acute, present on admission -He was started on IV ceftriaxone and vancomycin in the ED and these were continued until cultures grew MSSA and group B strep. -Dr. Gonzalez of orthopedic surgery performed partial toe amputation on 05/14/2020. -wound cultures currently growing group B strep and MSSA. bacteremia as noted above. 3. Diabetes type 2, poorly controlled with an A1c of 13.7, present on admission -Continue home dose of Lantus 35 units at bedtime. Reduced to 20 yesterday for NPO. Still with poor control today. -continue High dose correctional insulin q 6 hours -Diabetic education by dietitian ordered 4. Tobacco dependence, severe -Patient is counseled on smoking cessation, and educated on how it adversely affects wound healing 5. Elevated blood pressure without a diagnosis of hypertension -overnight patient was given a 1 time dose of metoprolol, given type 2 diabetes would start lisinopril after operative interventions if his blood pressure remained elevated but it is more controlled today without therapies on the day of discharge. Dispo: transfer to [facility], accepting physician Dr. Mccrary, for further evaluation by vascular surgery and angiogram. Time Spent with Patient Time spent: Greater than 30 minutes Exam Vital Signs (past 8 hours): - 05/15/20 07:00 05/15/20 07:50 Temperature 98.6 F Pulse Rate 67 Respiratory Rate 16 Blood Pressure 124/60 Pulse Oximetry 96 96 Oxygen Delivery Method Room Air Oxygen Flow Rate 0 Narrative Exam Narrative: Gen: Alert, oriented, thin 59 y.o. male, appears chronically ill, hard of hearing HEENT: normocephalic, atraumatic, conjunctiva clear, sclera non-icteric, curt ntulous, oral mucosa pink and moist, strong odor of tobacco on him Neck: supple, full ROM, no JVD, trachea is midline Resp: Lungs CTA, non-labored breathing CV: RRR, no murmur or rubs. Non palpable PT/DP pulses for me on the L Abd: soft, non-tender, normoactive BTs Skin: no lesions or rashes, dressing c/d/i as noted below. Neuro: Very hard of hearing, alert and oriented X 4 w/no focal deficits. Speech clear and coherent. Extremities: Left toe dressing c/d/i, now s/p partial toe amputation with orthopedic surgery. Objective Labs Result Diagrams: 05/14/20 05:20 05/14/20 05:20 Discharge Plan Discharge Plan Disposition: [facility]
[2020-05-15] MEDS: SODIUM CHLORIDE 0.9% 1,000 ML 100 ML IV (12:56)
--- NOTE | 2020-05-15 15:44 | DIET.PN ---
Dietary Progress Note Assessment: Mr. Guerin is a 59 yom with uncontrolled T2DM on insulin. He has LE neuropathy. He had a diabetic foot infection of his great toe on the left side which was partially amputated. He does not endorse prior diabetes education. He does not monitor his blood glucose but states his sister is getting him a glucometer. HT: 185.42cm WT: 68.04kg BMI: 19.8 Labs: a1v: 13.8 MNA: 12 Roberto: 20 Nutrition Diagnosis: Altered Nutrition related labs related to endocrine dysfunction, impaired glucose metabolism, lack of previous exposure to accurate nutrition information as evidenced by pt report, dx of diabetes, previous diet high in refined carbohydrates.? Interventions: 1. Discussed pathophysiology of diabetes. Reviewed A1c and its correlation to blood glucose numbers. Discussed recommended BG ranges. 2. Discussed importance of self-monitoring, how often, and when to check. 3. Discussed impact of nutrition/diet on blood sugar control.? Discussed fed versus non-fed state. 4. Discussed the effect of carbohydrates/protein/fat on blood sugar control.? Stressed importance of consistent carbohydrate intake at each meal and provided instructions for recommended servings/portions of carbohydrates/protein per meal. Provided pt with educational material. ?? 5. Reviewed carbohydrate counting and measuring carbohydrate content via serving sizes and reading nutrition labels.? Provided handouts.?? 6. Stressed importance of meal timing and not going >4-5 hours between meals. 7. Recommended pt referral to outpatient diabetes education program. Pt prefers DSME at [facility] as he resides in [place]. 8. ONS [place] for wound healing. Diet Order: CCD EER: 2000 kenyon (30cal/kg) 100g pro (1.5g/kg) undernourished; wound healing Monitoring/Evaluations: weight, PO's, glucose, ONS acceptance
== END 2020-05-15 15:00 | disposition short-term general hospital (02) | DRG 617 ==
LOC: ED 20:06 → AC 21:09
PROVIDERS: Orthopaedic Surgery Foot and Ankle Surgery; Admitting Provider Nurse Practitioner Family; Emergency Provider Emergency Medicine; Referring Provider Emergency Medicine; Visit Provider Nurse Practitioner Family
PROC: 0Y6Q0Z3 Detachment at Left 1st Toe, Low, Open Approach (ICD-10-PCS; principal; 2020-05-14 20:15)
DX: E11.69 Type 2 diabetes mellitus with other specified complication (principal); E11.52 Type 2 diabetes mellitus with diabetic peripheral angiopathy with gangrene; I96 Gangrene, not elsewhere classified; M86.9 Osteomyelitis, unspecified; R78.81 Bacteremia; E11.65 Type 2 diabetes mellitus with hyperglycemia; E11.628 Type 2 diabetes mellitus with other skin complications; L03.032 Cellulitis of left toe; R62.59 Other lack of expected normal physiological development in childhood; B95.4 Other streptococcus as the cause of diseases classified elsewhere; I70.8 Atherosclerosis of other arteries; Z79.4 Long term (current) use of insulin; F17.210 Nicotine dependence, cigarettes, uncomplicated; R03.0 Elevated blood-pressure reading, without diagnosis of hypertension; Z11.59 Encounter for screening for other viral diseases
CPT/HCPCS: 36415; 73630; 80053; 82962; 83036; 83605; 83690; 83735; 84145; 85025; 85651; 86140; 87040; 87070; 87075; 87077; 87147; 87150; 87176; 87186; 87205; 87635; 93306; 93925; 96365; 96367; 96372; 99284; C8902; C8912; C8918; J1885; J2405; J2704; J2765

== ENCOUNTER 2022-07-31 20:06 | Emergency (ER) | payer OTHER, SELFPAY ==
[2022-07-31] VITALS (14 sets, daily range): BP systolic 180–210; BP diastolic 77–91; PULSE 60–72; RESP 15–21; TEMP 36.3; O2SAT 96–99; BMI 25.4
--- NOTE | 2022-07-31 20:30 | PC.NURSE ---
To room from triage - assessment performed
--- NOTE | 2022-07-31 21:15 | PC.NURSE ---
ambulatory to the bathroom - steady gait - clean catch UA collected
--- NOTE | 2022-07-31 21:30 | DI.RAD.S_ITS ---
PROCEDURE: XR CHEST 1V INDICATIONS: chest pain TECHNIQUE: One view of the chest was acquired. COMPARISON: None. FINDINGS: Surgical changes and devices: None. Lungs and pleura: Lungs are clear. No pleural effusions or pneumothorax. Mediastinum: Mediastinal contours appear normal. Heart size is normal. Bones and chest wall: No suspicious bony lesions. Overlying soft tissues appear unremarkable. IMPRESSION: Normal for age, source of current chest pain symptoms is not seen. Dictated by: Derek Caba M.D. on 07/31/2022 at 21:43 Approved by: Derek Caba M.D. on 07/31/2022 at 21:43
--- NOTE | 2022-07-31 21:55 | PC.NURSE ---
IV started with lab draw - tolerated well
--- NOTE | 2022-07-31 22:30 | PC.NURSE ---
Resting quietly in NAD - no needs voiced - friend at bedside
[2022-07-31 22:32] LABS: Add Manual Diff / Slide Review NO; Basophils Absolute Auto 100 /uL (0-100); Basophils Percent Auto 1.2 % (0-2); Eosinophils Absolute Auto 400 /uL (0-450); Eosinophils Percent Auto 3.6 % (2-4); Hematocrit 33.5 % (41-53); Hemoglobin 11.3 g/dL (13.5-17.5); Lymphocytes Absolute Auto 2400 /uL (1100-4500); Lymphocytes Percent Auto 22.5 % (25-40); Mean Corpuscular HGB Conc 33.9 % (30-36); Mean Corpuscular Hemoglobin 31.1 PG (26-34); Mean Corpuscular Volume 91.9 fL (80-100); Monocytes Absolute Auto 1300 /uL (0-900); Monocytes Percent Auto 11.9 % (3-14); Neutrophils Absolute Auto 6400 /uL (1500-7000); Neutrophils Percent Auto 60.8 % (50-75); Platelet Count 266 X10^3/uL (150-400); Red Blood Cell Count 3.65 X10^6/uL (4.5-5.9); Red Cell Distribution Width 13.1 % (11.6-14.8); White Blood Cell Count 10.6 X10^3/uL (4.5-11.0)
[2022-07-31 22:36] LABS: Prothrombin Time 11.8 SECONDS (10.1-12.7)
[2022-07-31 22:39] LABS: PTT Partial Thromboplastin Tim 37 SECONDS (26-36)
--- NOTE | 2022-07-31 22:40 | ED_ITS ---
HPI - Skin/Abscess/Foreign Bdy General Chief complaint: Skin/Abscess/Foreign Body Stated complaint: Left leg and hand problems, Diabetic, High BP Time Seen by Provider: 07/31/22 22:23 Source: patient and family Mode of arrival: Ambulatory History of Present Illness HPI narrative: Patient is a 62-year-old male history of chronic smoker hypertension diabetes presenting today variety of complaints. Stating that he has had increasing lower extremity edema for about a week. He denies any chest pain or shortness of breath. He is noted to be quite hypertensive here in the ED is but states that he taking his medications regularly. For possibly a week as well on his left hand he has had blisters on his 3rd 4th and 5th fingers. He did is adamant that he has not had any injury to them. They are not red. He was seen by a doctor is wear of the doctor wrapped his fingers on told him to go to walk-in Clinic if things got worse. He has not had any fever chills. He is extremely hard of hearing on not a great historian his son is at bedside who is slightly better. Related Data Home Medications Medication Instructions Recorded Confirmed gabapentin 300 mg capsule 300 mg PO DAILY 05/13/20 05/13/20 insulin glargine 100 unit/mL (3 35 unit SUBCUT BEDTIME 05/13/20 05/13/20 mL) subcutaneous pen (Basaglar KwikPen U-100 Insulin) metformin 500 mg tablet 500 mg PO BID 05/13/20 05/13/20 amlodipine 5 mg tablet 5 mg PO DAILY 07/31/22 07/31/22 lisinopril 2.5 mg tablet 2.5 mg PO DAILY 07/31/22 07/31/22 Previous Rx's Medication Instructions Recorded furosemide 20 mg tablet (Lasix) 20 mg PO DAILY #4 tabs 08/01/22 Allergies Allergy/AdvReac Type Severity Reaction Status Date / Time Penicillins Allergy Unknown Verified 07/31/22 20:12 Review of Systems Review of Systems Narrative: GENERAL: Denies chills, fatigue, malaise, fever, sweats, travel HEENT: Denies sinus pain, ear pain, sore throat, difficulty swallowing, neck pain RESPIRATORY: Denies dyspnea, cough, wheezing, hemoptysis, sputum. CARDIOVASCULAR: Denies chest pain, palpitations, orthopnea, edema GASTROINTESTINAL: Denies nausea, vomiting, abdominal pain, diarrhea, constipation, melena. : Denies dysuria, frequency, incontinence, hematuria, urinary retention, flank pain. MUSCULOSKELETAL: + lower extremity edema Denies weakness, joint pain, or bony pain SKIN: Blistering left hand see HPI NEUROLOGIC: Denies weakness, dizziness, headache, numbness, change in speech, confusion PSYCHIATRIC: No concerning psychosocial issues. 12 point review of systems is negative except for those stated above and HPI Patient History Medical History Cognitive developmental delay Diabetes type 2, uncontrolled Edentulous Hard of hearing Tobacco user Surgical History Hx of cholecystectomy Family History Sister Diabetes type 1, controlled Brother Diabetes mellitus Father Acute PR Atrial fibrillation, chronic Status cardiac pacemaker Mother Lung cancer Social History marital status: unmarried,single number of children: 1 household members: other lives independently: Yes caregiver/support person: No housing: house occupational status: employed current occupational exposures/hazards: Yes ([employer]) Smoking Status: Current every day smoker quit status: not considering quitting alcohol intake: former substance use type: marijuana Smoking Status: Current every day smoker tobacco type: cigarettes Substance Use Type: marijuana Exam Initial Vital Signs Initial Vital Signs: Vital Signs Temperature 97.4 F L 07/31/22 20:12 Pulse Rate 72 07/31/22 20:12 Respiratory Rate 19 07/31/22 20:12 Blood Pressure 207/84 H 07/31/22 20:12 Pulse Oximetry 98 07/31/22 20:12 Oxygen Delivery Method 07/31/22 20:12 GENERAL: Alert 62-year-old male hard of hearing HEENT: Head atraumatic,EOMI, pupils reactive, face symmetric, [moist] mucous membranes CARDIOVASCULAR: Regular rate and rhythm without murmurs, rubs or gallops. RESPIRATORY: Breath sounds equal bilaterally, no wheezes rales or rhonchi. ABDOMEN: Soft, nontender. Normoactive bowel sounds all 4 quadrants. No guarding or rebound. EXTREMITIES: Normal range of motion, no clubbing or edema. Neurovascularly intact NEUROLOGICAL: Alert and oriented x4 SKIN: Partially ruptured blisters on dorsal side of hand 3rd 4th and 5th fingers mostly between the MCP and PIP on all fingers. New there is no gross surrounding erythema he is able to move all fingers. There is no blistering on the palmar side this is not circumferential. Course Orders Ordered: ED Orders 07/31/22 21:30 XR chest 1V Stat EKG-12 Lead Stat 07/31/22 21:55 BNP [NT-proBNP (BNP-Adult 18+)] Stat Complete Blood Count AUTO DIFF Stat Comprehensive Metabolic Panel Stat Lipase Stat Magnesium Stat Partial Thromboplastin Time Stat Prothrombin Time INR Stat Troponin & CK Cardiac Panel Stat 07/31/22 23:55 Trop I [Troponin I] Stat Discontinued Medications Furosemide (Furosemide 40 Mg/4 Ml Vial) 40 mg IV NOW ONE Stop: 07/31/22 23:29 Last Admin: 07/31/22 23:30 Dose: 40 mg Documented By: CHRISTINE Vital Signs Vital signs: Vital Signs - 8 hr 07/31/22 22:00 07/31/22 22:01 07/31/22 22:01 Pulse Rate 67 67 Respiratory Rate 17 19 Blood Pressure 207/91 H Pulse Oximetry 98 98 07/31/22 22:30 07/31/22 22:31 07/31/22 22:31 Pulse Rate 66 66 Respiratory Rate 15 17 Blood Pressure 180/77 H Pulse Oximetry 97 97 07/31/22 23:00 07/31/22 23:01 07/31/22 23:01 Pulse Rate 68 65 Respiratory Rate 21 17 Blood Pressure 200/81 H Pulse Oximetry 96 97 07/31/22 23:30 07/31/22 23:30 08/01/22 00:00 Pulse Rate 60 Respiratory Rate 17 Blood Pressure 180/77 H 195/82 H Pulse Oximetry 97 08/01/22 00:00 08/01/22 00:30 08/01/22 00:30 Pulse Rate 63 60 Respiratory Rate 14 17 Blood Pressure 187/79 H Pulse Oximetry 97 97 08/01/22 01:00 08/01/22 01:01 08/01/22 01:01 Pulse Rate 69 66 Respiratory Rate 19 18 Blood Pressure 164/69 H Pulse Oximetry 98 97 08/01/22 01:30 08/01/22 01:31 08/01/22 01:31 Pulse Rate 57 L 54 L Respiratory Rate 17 16 Blood Pressure 125/60 Pulse Oximetry 94 94 MDM - Skin/Abscess/Foreign Bdy Lab Data Result diagrams: 07/31/22 21:55 07/31/22 21:55 Labs: Lab Results 07/31/22 07/31/22 07/31/22 Range/Units 21:55 21:55 21:55 WBC 10.6 (4.5-11.0) X10^3/uL RBC 3.65 L (4.5-5.9) X10^6/uL Hgb 11.3 L (13.5-17.5) g/dL Hct 33.5 L (41-53) % MCV 91.9 (80-100) fL MCH 31.1 (26-34) PG MCHC 33.9 (30-36) % RDW 13.1 (11.6-14.8) % Plt Count 266 (150-400) X10^3/uL Neut % (Auto) 60.8 (50-75) % Lymph % (Auto) 22.5 L (25-40) % Mingo % (Auto) 11.9 (3-14) % Eos % (Auto) 3.6 (2-4) % Baso % (Auto) 1.2 (0-2) % Neut # (Auto) 6400 (1049-3031) /uL Lymph # (Auto) 2400 (2964-5037) /uL Mingo # (Auto) 1300 H (0-900) /uL Eos # (Auto) 400 (0-450) /uL Baso # (Auto) 100 (0-100) /uL PT 11.8 (10.1-12.7) SECONDS INR 1.0 (0.9-1.3) APTT 37 H (26-36) SECONDS Sodium 142 (137-145) mmol/L Potassium 4.3 (3.4-5.1) mmol/L Chloride 112 H (98-107) mmol/L Carbon Dioxide 25 (22-32) mmol/L BUN 31 H (9-20) mg/dL Creatinine 1.18 (0.66-1.25) mg/dL Estimated GFR > 60 (>60) mL/min BUN/Creatinine Ratio 26.3 H (6-22) Glucose 63 L (80-110) mg/dL Calcium 8.1 L (8.4-10.2) mg/dL Magnesium 2.0 (1.6-2.3) mg/dL Total Bilirubin 0.2 (0.2-1.3) mg/dL AST 28 (17-59) IU/L ALT 25 (<50) IU/L Alkaline Phosphatase 74 (38-126) U/L Total Creatine Kinase 430 H (55-170) U/L CK-MB (CK-2) 5.39 H (<2.37) ng/mL CK-MB (CK-2) Rel Index 1.3 L (1.5-5.0) % Troponin I 0.036 H (0.01-0.034) ng/mL NT-Pro-B Natriuret Pep 6560 H (<125) pg/mL Total Protein 6.5 (6.3-8.2) g/dL Albumin 3.2 L (3.5-5.0) g/dL Globulin 3.3 (1.7-4.1) g/dL Albumin/Globulin Ratio 1.0 (1.0-2.8) Lipase 80 (23-300) U/L 08/01/22 Range/Units 00:10 WBC (4.5-11.0) X10^3/uL RBC (4.5-5.9) X10^6/uL Hgb (13.5-17.5) g/dL Hct (41-53) % MCV (80-100) fL MCH (26-34) PG MCHC (30-36) % RDW (11.6-14.8) % Plt Count (150-400) X10^3/uL Neut % (Auto) (50-75) % Lymph % (Auto) (25-40) % Mingo % (Auto) (3-14) % Eos % (Auto) (2-4) % Baso % (Auto) (0-2) % Neut # (Auto) (6623-1842) /uL Lymph # (Auto) (8412-7234) /uL Mingo # (Auto) (0-900) /uL Eos # (Auto) (0-450) /uL Baso # (Auto) (0-100) /uL PT (10.1-12.7) SECONDS INR (0.9-1.3) APTT (26-36) SECONDS Sodium (137-145) mmol/L Potassium (3.4-5.1) mmol/L Chloride (98-107) mmol/L Carbon Dioxide (22-32) mmol/L BUN (9-20) mg/dL Creatinine (0.66-1.25) mg/dL Estimated GFR (>60) mL/min BUN/Creatinine Ratio (6-22) Glucose (80-110) mg/dL Calcium (8.4-10.2) mg/dL Magnesium (1.6-2.3) mg/dL Total Bilirubin (0.2-1.3) mg/dL AST (17-59) IU/L ALT (<50) IU/L Alkaline Phosphatase (38-126) U/L Total Creatine Kinase (55-170) U/L CK-MB (CK-2) (<2.37) ng/mL CK-MB (CK-2) Rel Index (1.5-5.0) % Troponin I 0.036 H (0.01-0.034) ng/mL NT-Pro-B Natriuret Pep (<125) pg/mL Total Protein (6.3-8.2) g/dL Albumin (3.5-5.0) g/dL Globulin (1.7-4.1) g/dL Albumin/Globulin Ratio (1.0-2.8) Lipase (23-300) U/L Urine Dip Bedside Urine Glucose Negative Bedside Urine Bilirubin - Negative Bedside Urine Ketone - Negative Urine Specific [place] 1.010 Bedside Urine Occult Blood +++ Bedside Urine pH 6.0 Bedside Urine Protein +++ 300 Bedside Urine Urobilinogen - Negative Bedside Urine Nitrite - Negative Bedside Urine Leukocytes - Negative Esterase Imaging Data Chest x-ray: Radiologist's Impression: XRay Report Signed Patient: Craig Guerin MR#: [id number] : 1960 Acct:[id number] Age/Sex: 62 / M Date of Service: 07/31/22 Loc: ED Accession Number: [id number] ?? Procedure: XR chest 1V Ordering Provider: Akua Mayorga D.O. PROCEDURE:? XR CHEST 1V ? INDICATIONS:? chest pain ? TECHNIQUE:? One view of the chest was acquired.? ? COMPARISON:? None. ? FINDINGS:? ? Surgical changes and devices:? None.? ? Lungs and pleura:? Lungs are clear.? No pleural effusions or pneumothorax.? ? Mediastinum:? Mediastinal contours appear normal.? Heart size is normal.? ? Bones and chest wall:? No suspicious bony lesions.? Overlying soft tissues appear unremarkable.? ? IMPRESSION:? Normal for age, source of current chest pain symptoms is not seen. ? ? Dictated by: Derek Caba M.D. on 07/31/2022 at 21:43 ? ? Approved by: Derek Caba M.D. on 07/31/2022 at 21:43 ECG Data Interpretation: Sinus rhythm rate 71 p.r. interval is MDM Narrative Medical decision making narrative: Patient initially denied any sort of injury to his left hand. It is certainly on place to have blistering from the congestive heart failure that he is likely experiencing with his bilateral pitting edema and BNP of 6500. He is given Lasix for newly diagnosed congestive heart failure. He will need outpatient echocardiogram. Troponin remains stable and is not positive. Blood pressure improved actually quite a bit while in the ED. He is really not having any significant shortness of breath or hypoxia. Urinated many times with the Lasix. Patient does remember that maybe he has a chemical burn on his hand possibly from some sort of gas. He says he was given a tetanus when he saw his provider last week. He is given a YouTube video and instructed to do the stretches on it. He is given referral to wound care as well, he is at high risk of poor healing. His wounds are dressed was Xeroform and nonadhesive gauze. At this time there is no need for admission. The blisters in possible back are not circumferential he has full range of motion currently. Discharge Plan Departure Patient Disposition: Home Clinical Impression: Congestive heart failure, 2nd deg burn mult finger Instructions: DI for Back, DI for Heart Failure Activity Restrictions/Additional Instructions: *You have been diagnosed with congestive heart failure and finger burn *What to do: Please address your fingers with the Xerofoam and antibiotic ointment. You tube back 306 for hand stretches, please do this multiple times a day, so that you do not lose function of your fingers. You will also need an outpatient echocardiogram to assess your heart function *Continue to take medications as directed Lasix 20 mg once a day for 4 days --> SENT TO [facility] *Follow up with your primary care provider in 2-3 days or call [phone] Recommend calling wound care, a referral has been sent for you. Your fingers will have a difficult time healing *Return to ER if you should have seeing shortness of breath swelling redness pain or any new, worsening or concerning symptoms Prescriptions: New furosemide [Lasix] 20 mg tablet 20 mg PO DAILY Qty: 4 0RF No Action metformin 500 mg Tablet 500 mg PO BID gabapentin 300 mg capsule 300 mg PO DAILY Jessaaglar Reyna U-100 Insulin 100 unit/mL (3 mL) insulin pen 35 unit SUBCUT BEDTIME Label Comments: inject 30 units at bedtime amlodipine 5 mg tablet 5 mg PO DAILY Label Comments: take 1 tablet by mouth once daily lisinopril 2.5 mg tablet 2.5 mg PO DAILY Label Comments: take 1 tablet by mouth once daily Referrals: Brenden Cohen MD [Physician] - Visit Report Forms: Patient Portal/API
[2022-07-31 22:41] LABS: Alanine Aminotransferase 25 IU/L (<50); Albumin 3.2 g/dL (3.5-5.0); Alkaline Phosphatase 74 U/L (38-126); Aspartate Aminotransferase 28 IU/L (17-59); BUN Creatinine Ratio 26.3 (6-22); Bilirubin Total 0.2 mg/dL (0.2-1.3); Blood Urea Nitrogen 31 mg/dL (9-20); Calcium 8.1 mg/dL (8.4-10.2); Carbon Dioxide 25 mmol/L (22-32); Chloride 112 mmol/L (98-107); Creatine Kinase 430 U/L (55-170); Estimated Glomerular Filt Rate > 60 mL/min (>60); Globulin 3.3 g/dL (1.7-4.1); Glucose 63 mg/dL (80-110); HEMOLYSIS < 15 (0-50); Lipase 80 U/L (23-300); Potassium 4.3 mmol/L (3.4-5.1); Sodium 142 mmol/L (137-145); Total Protein 6.5 g/dL (6.3-8.2)
--- NOTE | 2022-07-31 22:52 | PC.NURSE ---
MD at bedside - family present
[2022-07-31 22:53] LABS: NT-proBNP (BNP-Adult 18+) 6560 pg/mL (<125); Troponin I 0.036 ng/mL (0.01-0.034)
[2022-07-31 22:56] LABS: CKMB % Relative Index 1.3 % (1.5-5.0); Creatine Kinase MB 5.39 ng/mL (<2.37)
[2022-07-31] MEDS: FUROSEMIDE 40 MG/4 ML VIAL IV (23:30)
--- NOTE | 2022-07-31 23:30 | PC.NURSE ---
When asked if the patient burned his fingers - the patient stated that he hasn't burned his fingers at all - then states that he does a lot of work with lawn mowers and he may have gotten gas on the fingers - back may be chemical related - MD thornton
[2022-08-01] VITALS: BP 195/82; PULSE 63; RESP 14; O2SAT 97
--- NOTE | 2022-08-01 | PC.NURSE ---
wound care completed at this time - tolerated well
--- NOTE | 2022-08-01 00:12 | PC.NURSE ---
blood drawn from IV for repeat troponin - tolerated well - blood labelled at bedside and sent to lab
[2022-08-01 00:30] VITALS: BP 187/79; PULSE 60; RESP 17; O2SAT 97
[2022-08-01 00:44] LABS: Troponin I 0.036 ng/mL (0.01-0.034)
[2022-08-01 01:00] VITALS: PULSE 69; RESP 19; O2SAT 98
[2022-08-01 01:01] VITALS: BP 164/69; PULSE 66; RESP 18; O2SAT 97
[2022-08-01 01:30] VITALS: PULSE 57; RESP 17; O2SAT 94
[2022-08-01 01:31] VITALS: BP 125/60; PULSE 54; RESP 16; O2SAT 94
== END 2022-08-01 01:58 | disposition home or self-care (01) ==
PROVIDERS: Emergency Provider Emergency Medicine
DX: I50.9 Heart failure, unspecified (principal); R07.9 Chest pain, unspecified; T23.239A Burn of second degree of unspecified multiple fingers (nail), not including thumb, initial encounter; I10 Essential (primary) hypertension
CPT/HCPCS: 36415; 71045; 80053; 81003; 82550; 82553; 83690; 83735; 83880; 84484; 85025; 85610; 85730; 93005; 93010; 96374; 99284; J1940

== ENCOUNTER → 2022-08-11 13:00 | Outpatient (CLI) | payer OTHER, SELFPAY | PROVIDERS: PCP Internal Medicine; Referring Provider Emergency Medicine; Visit Provider Family Medicine | DX: N39.46 Mixed incontinence (principal); T23.022A Burn of unspecified degree of single left finger (nail) except thumb, initial encounter; E11.628 Type 2 diabetes mellitus with other skin complications; Z72.0 Tobacco use | CPT/HCPCS: 11042; 11043; 82570; 84156; 87070; 87077; 87147; 87186; 87205; 99204; 99213 ==

== ENCOUNTER → 2022-08-11 14:43 | Outpatient (CLI) | payer OTHER, SELFPAY ==
[2022-08-11 16:00] LABS: Creatinine Urine Random 21.1 mg/dL
[2022-08-11 16:07] LABS: Protein (Total) Urine Random 408 mg/dL (0-12); Protein Creatinine Ratio Urine 19.33 GRAM/24H
== END ==
PROVIDERS: PCP Internal Medicine; Referring Provider Family Medicine; Visit Provider Family Medicine
DX: R80.9 Proteinuria, unspecified (principal)
CPT/HCPCS: 82570; 84156

== ENCOUNTER → 2022-08-18 15:01 | Outpatient (CLI) | payer OTHER, SELFPAY | PROVIDERS: PCP Internal Medicine; Referring Provider Internal Medicine; Visit Provider Surgery | DX: E11.628 Type 2 diabetes mellitus with other skin complications (principal); T23.132A Burn of first degree of multiple left fingers (nail), not including thumb, initial encounter; L08.9 Local infection of the skin and subcutaneous tissue, unspecified; R31.9 Hematuria, unspecified; R60.9 Edema, unspecified; I10 Essential (primary) hypertension | CPT/HCPCS: 97597 ==

== ENCOUNTER → 2022-09-08 13:15 | Outpatient (CLI) | payer OTHER, SELFPAY | PROVIDERS: PCP Internal Medicine; Referring Provider Internal Medicine; Visit Provider Surgery | DX: T23.392A Burn of third degree of multiple sites of left wrist and hand, initial encounter (principal); S60.812A Abrasion of left wrist, initial encounter; T23.332A Burn of third degree of multiple left fingers (nail), not including thumb, initial encounter; E11.628 Type 2 diabetes mellitus with other skin complications; L08.9 Local infection of the skin and subcutaneous tissue, unspecified; R80.9 Proteinuria, unspecified; R31.9 Hematuria, unspecified; R60.9 Edema, unspecified; I10 Essential (primary) hypertension | CPT/HCPCS: 16020; 87070; 87075; 87147; 87205; 97597; 99213 ==

== ENCOUNTER → 2022-09-08 14:46 | Outpatient (ROUT) | payer OTHER, SELFPAY | PROVIDERS: PCP Internal Medicine; Visit Provider Surgery | DX: T23.392A Burn of third degree of multiple sites of left wrist and hand, initial encounter (principal); S60.812A Abrasion of left wrist, initial encounter; T23.332A Burn of third degree of multiple left fingers (nail), not including thumb, initial encounter; E11.628 Type 2 diabetes mellitus with other skin complications; L08.9 Local infection of the skin and subcutaneous tissue, unspecified; R80.9 Proteinuria, unspecified; R31.9 Hematuria, unspecified; R60.9 Edema, unspecified; I10 Essential (primary) hypertension | CPT/HCPCS: 87070; 87075; 87147; 87205 ==

== ENCOUNTER → 2022-09-10 12:34 | Outpatient (CLI) | payer OTHER, SELFPAY | PROVIDERS: PCP Internal Medicine; Referring Provider Internal Medicine; Visit Provider Surgery | DX: T23.222A Burn of second degree of single left finger (nail) except thumb, initial encounter (principal); E11.628 Type 2 diabetes mellitus with other skin complications; L08.9 Local infection of the skin and subcutaneous tissue, unspecified; R60.9 Edema, unspecified | CPT/HCPCS: 16020 ==

== ENCOUNTER → 2022-09-15 14:26 | Outpatient (CLI) | payer OTHER, SELFPAY | PROVIDERS: PCP Internal Medicine; Referring Provider Internal Medicine; Visit Provider Surgery | DX: T23.392A Burn of third degree of multiple sites of left wrist and hand, initial encounter (principal); E11.628 Type 2 diabetes mellitus with other skin complications; L08.9 Local infection of the skin and subcutaneous tissue, unspecified; R60.9 Edema, unspecified; I10 Essential (primary) hypertension | CPT/HCPCS: 16020; 36415; 80053; 85025; 85610; 85730; 99213 ==

== ENCOUNTER → 2022-09-15 15:16 | Outpatient (CLI) | payer OTHER, SELFPAY ==
[2022-09-15 16:38] LABS: Add Manual Diff / Slide Review NO; Basophils Absolute Auto 100 /uL (0-100); Basophils Percent Auto 0.9 % (0-2); Eosinophils Absolute Auto 200 /uL (0-450); Eosinophils Percent Auto 2.4 % (2-4); Hematocrit 30.9 % (41-53); Hemoglobin 10.3 g/dL (13.5-17.5); Lymphocytes Absolute Auto 2000 /uL (1100-4500); Lymphocytes Percent Auto 21.6 % (25-40); Mean Corpuscular HGB Conc 33.4 % (30-36); Mean Corpuscular Hemoglobin 30.6 PG (26-34); Mean Corpuscular Volume 91.5 fL (80-100); Monocytes Absolute Auto 900 /uL (0-900); Monocytes Percent Auto 9.9 % (3-14); Neutrophils Absolute Auto 6000 /uL (1500-7000); Neutrophils Percent Auto 65.2 % (50-75); Platelet Count 401 X10^3/uL (150-400); Red Blood Cell Count 3.38 X10^6/uL (4.5-5.9); Red Cell Distribution Width 13.8 % (11.6-14.8); White Blood Cell Count 9.2 X10^3/uL (4.5-11.0)
[2022-09-15 16:43] LABS: INR 1.1 (0.9-1.3); Prothrombin Time 12.3 SECONDS (10.1-12.7)
[2022-09-15 16:45] LABS: PTT Partial Thromboplastin Tim 36 SECONDS (26-36)
[2022-09-15 17:37] LABS: Alanine Aminotransferase 17 IU/L (<50); Albumin 3.1 g/dL (3.5-5.0); Albumin Globulin Ratio 0.9 (1.0-2.8); Alkaline Phosphatase 75 U/L (38-126); Aspartate Aminotransferase 18 IU/L (17-59); BUN Creatinine Ratio 15.7 (6-22); Bilirubin Total 0.2 mg/dL (0.2-1.3); Blood Urea Nitrogen 20 mg/dL (9-20); Calcium 7.7 mg/dL (8.4-10.2); Carbon Dioxide 28 mmol/L (22-32); Chloride 105 mmol/L (98-107); Estimated Glomerular Filt Rate > 60 mL/min (>60); Globulin 3.5 g/dL (1.7-4.1); Glucose 197 mg/dL (80-110); HEMOLYSIS < 15 (0-50); Potassium 4.8 mmol/L (3.4-5.1); Sodium 141 mmol/L (137-145); Total Protein 6.6 g/dL (6.3-8.2)
== END ==
PROVIDERS: PCP Internal Medicine; Referring Provider Surgery; Visit Provider Surgery
DX: L08.9 Local infection of the skin and subcutaneous tissue, unspecified (principal); T23.392A Burn of third degree of multiple sites of left wrist and hand, initial encounter
CPT/HCPCS: 36415; 80053; 85025; 85610; 85730

== ENCOUNTER → 2022-09-29 15:17 | Outpatient (CLI) | payer OTHER, SELFPAY | PROVIDERS: PCP Internal Medicine; Referring Provider Internal Medicine; Visit Provider Surgery | DX: E11.628 Type 2 diabetes mellitus with other skin complications (principal); T23.232A Burn of second degree of multiple left fingers (nail), not including thumb, initial encounter; T23.392A Burn of third degree of multiple sites of left wrist and hand, initial encounter; L08.9 Local infection of the skin and subcutaneous tissue, unspecified; R60.9 Edema, unspecified | CPT/HCPCS: 11044; 99212; 99213 ==

== ENCOUNTER → 2022-09-30 14:33 | Outpatient (CLI) | payer OTHER, SELFPAY ==
--- NOTE | 2022-09-30 14:34 | DI.RAD.S_ITS ---
PROCEDURE: XR HAND LT MIN 3V INDICATIONS: Eval for osteo, wound left 5th digit TECHNIQUE: 3 views of the hand(s) acquired. COMPARISON: None. FINDINGS: Bones: No acute fractures or dislocations. Old injury involving ulnar styloid is seen with well corticated fragment. Osteoarthritic changes are noted throughout left hand and wrist joints. Carpal bones are normally aligned. No suspicious bony lesions. No gross bony erosive changes. Soft tissues: No suspicious soft tissue calcifications. IMPRESSION: Left hand and wrist joint osteoarthritis. No acute fracture or dislocation. No radiographic evidence of osteomyelitis. Dictated by: Jame Quesada M.D. on 09/30/2022 at 15:29 Approved by: Jame Quesada M.D. on 09/30/2022 at 15:30
== END ==
PROVIDERS: PCP Internal Medicine; Referring Provider Surgery; Visit Provider Surgery
DX: L08.9 Local infection of the skin and subcutaneous tissue, unspecified (principal); M19.042 Primary osteoarthritis, left hand; M19.032 Primary osteoarthritis, left wrist
CPT/HCPCS: 73130

== ENCOUNTER → 2022-10-06 14:09 | Outpatient (CLI) | payer OTHER, SELFPAY | PROVIDERS: PCP Internal Medicine; Referring Provider Internal Medicine; Visit Provider Surgery | DX: T23.392A Burn of third degree of multiple sites of left wrist and hand, initial encounter (principal); E11.628 Type 2 diabetes mellitus with other skin complications; L08.9 Local infection of the skin and subcutaneous tissue, unspecified; R60.0 Localized edema; Z72.0 Tobacco use | CPT/HCPCS: 16020; 99213 ==

== ENCOUNTER → 2022-10-21 14:02 | Outpatient (CLI) | payer OTHER, SELFPAY | PROVIDERS: PCP Internal Medicine; Referring Provider Internal Medicine; Visit Provider Surgery | DX: T23.392A Burn of third degree of multiple sites of left wrist and hand, initial encounter (principal); L08.9 Local infection of the skin and subcutaneous tissue, unspecified; T31.0 Burns involving less than 10% of body surface; R60.9 Edema, unspecified; E11.628 Type 2 diabetes mellitus with other skin complications | CPT/HCPCS: 99213 ==

== ENCOUNTER → 2022-11-12 13:44 | Outpatient (CLI) | payer OTHER, SELFPAY | PROVIDERS: PCP Internal Medicine; Referring Provider Internal Medicine; Visit Provider Surgery | DX: E11.621 Type 2 diabetes mellitus with foot ulcer (principal); E11.622 Type 2 diabetes mellitus with other skin ulcer; E11.628 Type 2 diabetes mellitus with other skin complications; T23.392A Burn of third degree of multiple sites of left wrist and hand, initial encounter; L97.511 Non-pressure chronic ulcer of other part of right foot limited to breakdown of skin; L97.822 Non-pressure chronic ulcer of other part of left lower leg with fat layer exposed | CPT/HCPCS: 11042; 97597; 99213 ==

== ENCOUNTER → 2022-11-18 09:53 | Outpatient (CLI) | payer OTHER, SELFPAY | PROVIDERS: PCP Internal Medicine; Referring Provider Internal Medicine; Visit Provider Surgery | DX: T23.022A Burn of unspecified degree of single left finger (nail) except thumb, initial encounter (principal); L08.9 Local infection of the skin and subcutaneous tissue, unspecified; E11.621 Type 2 diabetes mellitus with foot ulcer; E11.622 Type 2 diabetes mellitus with other skin ulcer; E11.628 Type 2 diabetes mellitus with other skin complications; L97.512 Non-pressure chronic ulcer of other part of right foot with fat layer exposed; L97.822 Non-pressure chronic ulcer of other part of left lower leg with fat layer exposed | CPT/HCPCS: 11042; 17250; 99213 ==

== ENCOUNTER → 2022-11-25 13:03 | Outpatient (CLI) | payer OTHER, SELFPAY | PROVIDERS: PCP Internal Medicine; Referring Provider Internal Medicine; Visit Provider Surgery | DX: E11.628 Type 2 diabetes mellitus with other skin complications (principal); E11.622 Type 2 diabetes mellitus with other skin ulcer; E11.621 Type 2 diabetes mellitus with foot ulcer; T23.322A Burn of third degree of single left finger (nail) except thumb, initial encounter; L97.512 Non-pressure chronic ulcer of other part of right foot with fat layer exposed; L97.822 Non-pressure chronic ulcer of other part of left lower leg with fat layer exposed; L08.9 Local infection of the skin and subcutaneous tissue, unspecified | CPT/HCPCS: 11042 ==

== ENCOUNTER → 2022-11-30 09:48 | Outpatient (CLI) | payer OTHER, SELFPAY | PROVIDERS: PCP Internal Medicine; Referring Provider Internal Medicine; Visit Provider Surgery | DX: E11.621 Type 2 diabetes mellitus with foot ulcer (principal); E11.622 Type 2 diabetes mellitus with other skin ulcer; E11.628 Type 2 diabetes mellitus with other skin complications; L08.9 Local infection of the skin and subcutaneous tissue, unspecified; T23.022A Burn of unspecified degree of single left finger (nail) except thumb, initial encounter; L97.512 Non-pressure chronic ulcer of other part of right foot with fat layer exposed; L97.822 Non-pressure chronic ulcer of other part of left lower leg with fat layer exposed; R60.9 Edema, unspecified | CPT/HCPCS: 11042; 16020 ==

== ENCOUNTER → 2022-12-14 09:51 | Outpatient (CLI) | payer OTHER, SELFPAY | PROVIDERS: PCP Internal Medicine; Referring Provider Internal Medicine; Visit Provider Surgery | DX: T23.002A Burn of unspecified degree of left hand, unspecified site, initial encounter (principal); E11.621 Type 2 diabetes mellitus with foot ulcer; E11.622 Type 2 diabetes mellitus with other skin ulcer; L97.512 Non-pressure chronic ulcer of other part of right foot with fat layer exposed; L97.822 Non-pressure chronic ulcer of other part of left lower leg with fat layer exposed | CPT/HCPCS: 99213 ==

== ENCOUNTER → 2022-12-23 12:54 | Outpatient (CLI) | payer OTHER, SELFPAY | PROVIDERS: PCP Internal Medicine; Referring Provider Internal Medicine; Visit Provider Surgery | DX: E11.622 Type 2 diabetes mellitus with other skin ulcer (principal); E11.621 Type 2 diabetes mellitus with foot ulcer; L97.822 Non-pressure chronic ulcer of other part of left lower leg with fat layer exposed; L97.512 Non-pressure chronic ulcer of other part of right foot with fat layer exposed; I10 Essential (primary) hypertension; T23.322D Burn of third degree of single left finger (nail) except thumb, subsequent encounter; R60.0 Localized edema | CPT/HCPCS: 11042; 99212; 99213 ==

== ENCOUNTER → 2022-12-30 13:25 | Outpatient (CLI) | payer OTHER, SELFPAY | PROVIDERS: PCP Internal Medicine; Referring Provider Internal Medicine; Visit Provider Surgery | DX: E11.621 Type 2 diabetes mellitus with foot ulcer (principal); E11.622 Type 2 diabetes mellitus with other skin ulcer; L97.512 Non-pressure chronic ulcer of other part of right foot with fat layer exposed; L97.822 Non-pressure chronic ulcer of other part of left lower leg with fat layer exposed; L98.492 Non-pressure chronic ulcer of skin of other sites with fat layer exposed; I10 Essential (primary) hypertension | CPT/HCPCS: 11042; 99213 ==

== ENCOUNTER → 2023-01-13 13:03 | Outpatient (CLI) | payer OTHER, SELFPAY | PROVIDERS: PCP Internal Medicine; Referring Provider Internal Medicine; Visit Provider Surgery | DX: E11.621 Type 2 diabetes mellitus with foot ulcer (principal); E11.622 Type 2 diabetes mellitus with other skin ulcer; L97.512 Non-pressure chronic ulcer of other part of right foot with fat layer exposed; L97.822 Non-pressure chronic ulcer of other part of left lower leg with fat layer exposed; L98.492 Non-pressure chronic ulcer of skin of other sites with fat layer exposed; I10 Essential (primary) hypertension | CPT/HCPCS: 11042; 97597 ==

== ENCOUNTER → 2023-01-20 13:01 | Outpatient (CLI) | payer OTHER, SELFPAY | PROVIDERS: PCP Internal Medicine; Referring Provider Internal Medicine; Visit Provider Surgery | DX: E11.621 Type 2 diabetes mellitus with foot ulcer (principal); E11.622 Type 2 diabetes mellitus with other skin ulcer; L97.512 Non-pressure chronic ulcer of other part of right foot with fat layer exposed; L98.492 Non-pressure chronic ulcer of skin of other sites with fat layer exposed; I10 Essential (primary) hypertension | CPT/HCPCS: 11042; 97597; 99212 ==

== ENCOUNTER → 2023-01-27 12:59 | Outpatient (CLI) | payer OTHER, SELFPAY | PROVIDERS: PCP Internal Medicine; Referring Provider Internal Medicine; Visit Provider Surgery | DX: E11.65 Type 2 diabetes mellitus with hyperglycemia (principal); R20.8 Other disturbances of skin sensation; I10 Essential (primary) hypertension; F17.210 Nicotine dependence, cigarettes, uncomplicated; Z86.31 Personal history of diabetic foot ulcer | CPT/HCPCS: 99213 ==

== ENCOUNTER → 2024-01-25 09:53 | Outpatient (CLI) | payer OTHER, SELFPAY ==
--- NOTE | 2024-01-25 09:57 | DI.US.S_ITS ---
PROCEDURE: US CAROTID DOPPLER BI INDICATIONS: Unspecified systolic (congestive) heart failure TECHNIQUE: Color and pulse Doppler interrogation was performed of both carotid systems, with image documentation and velocity measurements. COMPARISON: None. FINDINGS: Stenosis calculations are based on SRU (Society of Radi[employer] in Ultras[employer]) criteria. The flow velocities and the arterial waveforms are normal within both carotid arterial systems. Atherosclerotic plaque is seen on both sides. The estimated degree of internal carotid artery stenosis is less than 50%. Antegrade flow is confirmed within both vertebral arteries. IMPRESSION: No hemodynamically significant stenosis is seen. Atherosclerotic plaque is noted bilaterally. Dictated by: Chris Shah M.D. on 01/25/2024 at 18:19 Approved by: Chris Shah M.D. on 01/25/2024 at 18:19
--- NOTE | 2024-01-25 18:57 | DI.NM.S_ITS ---
DATE OF SERVICE: 01/25/2024 PROCEDURE: Pharmacological perfusion study. INDICATIONS: HFrEF with LVEF 30% to 35% on echocardiogram with underlying hypertension, hyperlipidemia, smoker, peripheral artery disease. RADIOPHARMACEUTICAL: 25.5 millicuries technetium-99m Myoview IV was injected at stress and 9.8 millicuries technetium-99m Myoview IV was injected at rest. CARDIAC STRESS: The patient underwent IV Lexiscan perfusion study under the supervision of an attending staff using standard intravenous Lexiscan as per protocol. The patient remained hemodynamically stable. Resting blood pressure 120/76. Resting baseline EKG revealed sinus rhythm with heart rate in 40s with first-degree AV block. During stress, no new convincing ischemic changes or new significant arrhythmias. The patient did not have any chest pain, however had minimal dyspnea along with nausea and vomiting. He was given 100 mg of aminophylline and symptoms got resolved. RAW DATA: There is increased subdiaphragmatic activity. GATED STUDY: Resting LV ejection fraction of 34% and stress LV ejection fraction of 36% with predominantly global hypokinesis as well as severe hypokinesis of the apex. Resting end-diastolic volume is 369 mL suggestive of significant LV dilatation. TID ratio 1.13. Lung/heart ratio 0.54, which is abnormal. MYOCARDIAL PERFUSION SCAN: Please note that this patient does not have any stress prone images. Stress supine and resting supine images were compared to each other. There appears to be predominantly fixed, large size, severely decreased perfusion of distal anterior wall, entire apex, mid to distal inferior wall as well as distal and proximal septum. 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 The patient may have multivessel coronary artery disease. There is no stress prone images. Hence, some element of diaphragmatic attenuation artifact cannot be ruled out. However, in view of profound LV dilatation and LV dysfunction, likely patient has true coronary artery disease. He may have multivessel coronary artery disease. Lung/heart ratio abnormal 0.54. Correlate clinically and consider left heart catheterization. GuerinCraig baez - [place]UN[place]/harpal/[place] doc#: [id number]/job#: [id number] dd: 01/25/2024 16:39:00 dt: 01/25/2024 17:28:00 DICTATING MD/COPIES TO: Thong De La Garza MD; Clara Davenport M.D. COPIES MNE: STEPHANIE;
== END ==
PROVIDERS: PCP Internal Medicine; Referring Provider Internal Medicine Cardiovascular Disease; Visit Provider Internal Medicine Cardiovascular Disease
DX: I13.0 Hypertensive heart and chronic kidney disease with heart failure and stage 1 through stage 4 chronic kidney disease, or unspecified chronic kidney disease (principal); E11.22 Type 2 diabetes mellitus with diabetic chronic kidney disease; N18.9 Chronic kidney disease, unspecified; I11.0 Hypertensive heart disease with heart failure; I50.20 Unspecified systolic (congestive) heart failure; I65.23 Occlusion and stenosis of bilateral carotid arteries; R09.89 Other specified symptoms and signs involving the circulatory and respiratory systems; R94.39 Abnormal result of other cardiovascular function study; E78.5 Hyperlipidemia, unspecified; F17.210 Nicotine dependence, cigarettes, uncomplicated; I73.9 Peripheral vascular disease, unspecified; Z79.4 Long term (current) use of insulin
CPT/HCPCS: 78452; 93017; 93880; A9502; J2785